=== PATIENT | male | born 1960 | race Caucasian/White ===

== ENCOUNTER → 2023-09-12 19:06 | Outpatient (REF) | payer BC, SELFPAY | LOC: MRI 3T 19:06 | PROVIDERS: ATTENDING PHYSICIAN Otolaryngology | DX: H90.41 Sensorineural hearing loss, unilateral, right ear, with unrestricted hearing on the contralateral side (principal); H93.11 Tinnitus, right ear | CPT/HCPCS: 70553; A9575 ==

== ENCOUNTER → 2023-10-02 06:25 | Day surgery (SDC) | payer BC, SELFPAY ==
[2023-10-02 08:18] LABS: Glucose - Point of Care 134 mg/dl (70-99)
== END ==
LOC: GI 06:25
PROVIDERS: ATTENDING PHYSICIAN Internal Medicine Gastroenterology
DX: Z12.11 Encounter for screening for malignant neoplasm of colon (principal); K64.8 Other hemorrhoids; D12.0 Benign neoplasm of cecum; D12.2 Benign neoplasm of ascending colon; D12.3 Benign neoplasm of transverse colon; D12.8 Benign neoplasm of rectum
CPT/HCPCS: 45385; 88305; 82962

== ENCOUNTER 2024-03-10 18:31 | Emergency (ER) | payer BC, SELFPAY ==
[2024-03-10 18:32] VITALS: BP 165/82
--- NOTE | 2024-03-10 18:42 | ED.GENMED ---
History of Present Illness
General
Chief Complaint: Musculo-Skeletal Complaint
Time Seen by Provider: 03/10/24 18:41
History of Present Illness
History of Present Illness:
TIME OF INITIAL ENCOUNTER: 6:40 PM
HPI: The patient presents due to cramping of the right hand that lasted for 20 minutes. It was described as rather severe but symptoms have since resolved. He has some degree of residual soreness. He has had similar but less severe episodes in
the past. He has blood work coming up in the near future.
EXAM:
GENERAL: Well appearing in no distress
HEENT: Moist oral mucosa
NEUROLOGIC: Excellent strength all extremities, no obvious coordination deficits
PSYCHIATRIC: Appropriate mental status, normal insight and judgement
EXTREMITIES: The patient is function in the right hand is excellent, there are no sensory deficits, he has excellent radial, there is no tenderness, there is no edema
SKIN: No rash, no lesions
NUMBER AND COMPLEXITY OF PROBLEMS ADDRESSED AT THE ENCOUNTER
� Chronic conditions affecting care: Anxiety, GERD, prediabetes
� Acute Exacerbation and/or Progression of Chronic Illness: This is an acute problem
� Differential Diagnosis includes: Muscle cramp, dehydration, electrolyte abnormality less likely
AMOUNT AND/OR COMPLEXITY OF DATA TO BE REVIEWED AND ANALYZED
� I performed an independent evaluation of and my interpretation is:
EKG:
CT:
X-rays:
Laboratory Studies:
Other:
� Review of other/old records: I reviewed old records, the patient had colonoscopy in September this year
� Clinical information was obtained by an independent historian: I spoke to his friend at bedside
� Prescriptions/Medications Considered but not given: The patient's symptoms are currently markedly improved therefore no analgesia given
� Further testing considered but not performed: Considered lab work however the patient tells me that he has upcoming lab work in the very near future
RISK OF COMPLICATIONS AND/OR MORBIDITY OR MORTALITY OF PATIENT MANAGEMENT
� Social determinants of health affecting care: Lives at home
� Discussion with other providers:
� Escalation of care including admission/observation vs risk of discharge considered: The patient symptoms have resolved. He has upcoming blood work as an outpatient. He states he has been under a lot of stress. I did suggest
that he could try drinking Gatorade Zero. He appears well-hydrated currently.
ANY OTHER UPDATES:
Past History
Past History
ED Past Medical History: None
ED Past Surgical History: None
Social History
Tobacco: Non-smoker
Alcohol: None
Drug: None
Personal: Single
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
Phy Exam
Physical Exam
Physical Exam:
See HPI
Course
Vital Signs
Initial and Last Documented VS:
Initial Vital Signs
Temp Pulse Resp BP Pulse Ox
97.9 F 66 16 165/82 97
03/10/24 18:32 03/10/24 18:32 03/10/24 18:32 03/10/24 18:32 03/10/24 18:32
Last Documented Vital Signs
Temp Pulse Resp BP Pulse Ox
97.9 F 66 16 165/82 97
03/10/24 18:32 03/10/24 18:32 03/10/24 18:32 03/10/24 18:32 03/10/24 18:32
*Critical Care Note
Total Time (30-74mins, 75-104mins- exclusive of procedures): Not Applicable
ED Attending Note
-
Portions of this chart may have been created with voice recognition software.� Occasional wrong word or��sound alike� substitutions may have occurred due to the inherent limitations of voice recognition software.
Discharge Plan
Departure
Patient Disposition: Home (Routine Discharge)
Date of Disposition: 03/10/24
Time of Disposition: 18:49
Patient with high blood pressure during this ER visit?: Yes
Discharge Problem:
Cramp in muscle
Instructions: Muscle Spasm ED
Prescriptions:
No Action
No Current Medications
Tylenol Arthritis
2 tab PO
oxycodone-acetaminophen 5 MG/325 MG tablet
1 tab PO Q4HPRN PRN (Reason: pain) Qty: 15 0RF
tamsulosin 0.4 MG capsule
0.4 mg PO DAILY Qty: 3 0RF
indomethacin 50 MG capsule
50 mg PO TID Qty: 15 0RF
Rx Instructions:
take with food
oxycodone-acetaminophen 5 MG/325 MG tablet
1 tab PO Q4HPRN PRN (Reason: Severe pain) Qty: 15 0RF
Activity Restrictions/Additional Instructions:
Follow-up with your primary care doctor. Return here if worse or other concerns.
Interventions
Interventions:
*Risk Screen - Suicide Last Done: 03/10/24 18:35
*Neglect/Abuse Screening Last Done: 03/10/24 18:35
Discharge Date and Time
Print Language: SLOVAK
== END 2024-03-10 19:10 | disposition home or self-care (01) ==
LOC: EMR 18:31
PROVIDERS: EMERGENCY PHYSICIAN Emergency Medicine; FAMILY PHYSICIAN Family Medicine
DX: R25.2 Cramp and spasm (principal)
CPT/HCPCS: 99283

== ENCOUNTER 2024-10-16 09:19 | Emergency (ER) | payer MEDICARE, SELFPAY ==
[2024-10-16 09:21] VITALS: BP 147/74
--- NOTE | 2024-10-16 09:26 | ED.GENMED ---
History of Present Illness
General
Chief Complaint: Flank Pain
Time Seen by Provider: 10/16/24 09:26
History of Present Illness
History of Present Illness:
TIME OF INITIAL EVALUATION
-
REVIEW OF OLD RECORDS
- I reviewed records, I saw this patient with cramping of the right hand in February 2020. The patient also was found to have a right-sided ureteral stone in 2009.
Note:
CHIEF COMPLAINT(S)
Abdominal pain and nausea.
HISTORY OF PRESENT ILLNESS
The patient is a 64-year-old male who presents with severe abdominal pain that began this morning. The patient initially thought the pain was due to twisting while sleeping, but the pain worsened over time. He describes the pain as being on the
right side and indicates tenderness in that area. The patient has a past history of kidney stones, noted in 2009 on the right side. He reports associated symptoms of nausea and sweating, which he attributes to the intensity of the pain. He also
mentions difficulty passing stool and slight urinary hesitancy.
PHYSICAL EXAM
- Abdominal: Tenderness noted in the right lower quadrant.
- Back: Right costovertebral angle tenderness on palpation.
- General: Well appearing but appears uncomfortable, elevated BMI noted
- HEENT: Moist oral mucosa
- Cardiovascular: No murmurs, normal heart rate, regular rhythm, No chest wall tenderness
- Pulmonary: No respiratory distress, breath sounds are clear and equal
- Neurologic: Excellent strength all extremities, no coordination deficits
- Psychiatric: Appropriate mental status, normal insight and judgement
- Extremities: Nontender, no edema, moves all extremities equally
- Skin: No rash, no lesions
PLAN
Initiate intravenous access for the administration of pain management and antiemetics. Administer ketorolac for pain control and medication for nausea. Proceed with diagnostic imaging to confirm the presence of a kidney stone and assess its size and
location.
DIFFERENTIAL DIAGNOSIS
The Differential Diagnosis includes, in no particular order and is not limited to:
1. Nephrolithiasis (kidney stone)
2. Pyelonephritis
3. Hernia
4. Musculoskeletal pain
5. Appendicitis
6. Gallbladder disease
7. Peptic ulcer disease
8. Gastroenteritis
9. Urinary tract infection
10. Prostatitis
RADIOLOGY
- CT imaging obtained and shows a 4 mm distal right ureteral stone
EKG
- Not indicated
LABS
- Urinalysis shows no definite sign of infection but does show hematuria, hyperglycemia noted and the patient does not have a history of diabetes
UPDATE
Patient appears more comfortable on reassessment at 12:01 PM
-ASSESSMENT
The patient has been diagnosed with a kidney stone, which is small to medium in size, contributing to severe abdominal pain. The patients glucose level is significantly high at 286 mg/dL, indicating potential undiagnosed diabetes.
EMERGENCY TREATMENTS ADMINISTERED
The patient received multiple rounds of pain medication, including ketorolac.
PLAN
The patient does not require hospital admission at this time due to the size and location of the kidney stone. After evaluation, the decision is to manage the condition on an outpatient basis.
INDEPENDENT REVIEW OF LABS AND INTERPRETATION OF TESTS
My independent interpretation of the CT scan is the presence of a small to medium-sized kidney stone. The stones positioning does not currently necessitate procedural intervention.
MEDICATION RECONCILIATION
Prescriptions for the patient include:
- Oxycodone/acetaminophen (Percocet) for pain management
- Medication for nausea
- Tamsulosin (Flomax) to assist in passing the kidney stone
- Metformin for glucose control
A prescription for a glucometer will also be provided for home monitoring of blood glucose levels.
MEDICAL DECISION MAKING
1. Number & Complexity of Problems: Chronic conditions affecting care include the potential for diabetes and history of kidney stones.
2. Data Reviewed:
- Category 1: CT imaging was ordered and reviewed confirming the kidney stone.
DIAGNOSIS
Nephrolithiasis (kidney stone), potential diabetes.
PATHOLOGIES TO CONSIDER
- Acute renal colic due to nephrolithiasis.
- Potential undiagnosed diabetes given the elevated glucose levels.
FOLLOW-UP INSTRUCTIONS
Follow up with a primary care physician for glucose management. Consider referral to a envelope folding machine adjuster for evaluation of possible sleep apnea.
Overall more comfortable on reassessment after meds given to treat pain from kidney stone
Past History
Past History
ED Past Medical History: None
ED Past Surgical History: None
Social History
Tobacco: Non-smoker
Alcohol: None
Drug: None
Personal: Single
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
Phy Exam
Physical Exam
Physical Exam:
See HPI
Course
Orders/Labs/Results
Orders:
Orders
10/16/24 09:31
0.9% Sodium Chloride 1000 ml [Nss] 1,000 ml IV BOLUS
Ketorolac [Toradol] 15 mg IV NOW STA
Ondansetron Injectable [Zofran] 4 mg IV NOW STA
10/16/24 09:57
Complete Blood Count/With Diff Urgent
Comprehensive Metabolic Panel Urgent
Urinalysis Reflex To Culture Urgent
Date Specimen was Collected: 10/16/24
Time Specimen was Collected: 09:47
Urine Microscopic Reflex Cult Urgent
Urine Culture Urgent
SEVERO Source: U
Specimen Description:
Date Specimen was Collected: 10/16/24
Time Specimen was Collected: 09:47
10/16/24 10:03
HYDROmorphone [Dilaudid] 1 mg IV NOW STA
10/16/24 10:13
Ondansetron Injectable [Zofran] 4 mg .ROUTE .STK-MED ONE
10/16/24 11:00
CT Abd/pel Without Iv Or Oral Urgent
Comment:
Reason For Exam: R flank pain
10/16/24 11:15
HYDROmorphone [Dilaudid] 1 mg .ROUTE .STK-MED ONE
10/16/24 11:22
HYDROmorphone [Dilaudid] 1 mg IV NOW STA
Abnormal Lab Results
10/16/24
09:57
MCHC 32.6 L g/dL
(33.0-37.0)
Abs Immat Gran (auto) 0.1 H 10^3/uL
(0-0.05)
Absolute Neuts (auto) 7.5 H 10^3/uL
(1.4-6.5)
Absolute Monos (auto) 0.8 H 10^3/uL
(0.1-0.6)
Lymphocytes % 18.2 L %
(20.5-51.1)
Chloride 108 H mmol/L
(98-107)
BUN 21 H mg/dl
(9-20)
Glucose 286 H mg/dl
(70-99)
Ur Occult Blood Reflex 4+ A
(Negative)
Leukocyte Esterase Rfl 1+ A
(Negative)
Urine RBC 40-50 A /HPF
(0-2)
Urine Bacteria (Reflex) Few A
(Negative)
Urine Glucose 2+ A
(Negative)
Urine Albumin (Reflex) 2+ A
(Neg - Trace)
10/16/24 09:57
10/16/24 09:57
Vital Signs
Initial and Last Documented VS:
Initial Vital Signs
Temp Pulse Resp BP Pulse Ox
36.6 C 60 16 147/74 95
10/16/24 09:21 10/16/24 09:21 10/16/24 09:21 10/16/24 09:21 10/16/24 09:21
Last Documented Vital Signs
Temp Pulse Resp BP Pulse Ox
36.6 C 75 18 154/90 95
10/16/24 09:21 10/16/24 12:00 10/16/24 12:00 10/16/24 10:15 10/16/24 12:00
*Pulse Oximetry
SaO2: 95
Oxygen Mode of Delivery: Room air
Patient hypoxic: no
*Critical Care Note
Total Time (30-74mins, 75-104mins- exclusive of procedures): Not Applicable
ED Attending Note
-
Portions of this chart may have been created with voice recognition software.� Occasional wrong word or��sound alike� substitutions may have occurred due to the inherent limitations of voice recognition software.
Discharge Plan
Departure
Patient Disposition: Home (Routine Discharge)
Date of Disposition: 10/16/24
Time of Disposition: 12:02
Patient with high blood pressure during this ER visit?: Yes
Discharge Problem:
Right ureteral stone
Instructions: Kidney Stones (DC), How to Strain Your Urine, Diabetes and diet, BLOOD PRESSURE
Prescriptions:
New
metformin 500 mg tablet
500 mg PO BID Qty: 60 0RF
oxycodone-acetaminophen [Percocet] 5-325 mg tablet
1 - 2 tab PO Q6HPRN PRN (Reason: pain) Qty: 14 0RF
ondansetron HCl 4 mg tablet
4 mg PO TID PRN (Reason: nausea and vomiting) Qty: 14 0RF
tamsulosin [Flomax] 0.4 mg capsule
0.4 mg PO DAILY Qty: 14 0RF
Referrals:
Von Hinojosa PA [Family Provider, Family Practice]
Montserrat Causey MD [Active, Pulmonary Medicine]
Richard Dawson MD [Active, Urology]
Activity Restrictions/Additional Instructions:
Your blood sugar is 286. This is consistent with diabetes. There does not appear to be any complications such as diabetic ketoacidosis based on the blood work. Your urinalysis shows blood which is commonly seen with kidney stone but there is no
sign of infection. I have also given the contact information for a envelope folding machine adjuster for sleep study, Dr. Causey. I recommend that you check your blood sugar before every meal and before bedtime. I sent a prescription for metformin to your pharmacy.
Follow-up your primary care doctor. Return here if worse or other concerns.
Interventions
Interventions:
*Risk Screen - Suicide Last Done: 10/16/24 09:21
*General Assessment Last Done: 10/16/24 10:18
*Neglect/Abuse Screening Last Done: 10/16/24 09:21
*ED- Fall Risk Assessment Last Done: 10/16/24 10:18
*ED COVID-19 Vaccine History Last Done: 10/16/24 10:18
*Nursing Disposition Last Done: 10/16/24 12:56
EJ-Zicvcj-Jwnigmmuze Assessment Last Done: 10/16/24 10:27
ED-Male Genitourinary Assessment Last Done: 10/16/24 10:27
Discharge Date and Time
Discharge Date/Time: 10/16/24 12:56
Print Language: GREENLANDIC
[2024-10-16] MEDS: NSS 1000 IV (10:01)
[2024-10-16] MEDS: TORADOL 15 MG IV (10:03)
[2024-10-16] MEDS: DILAUDID 1 MG IV ×2 (10:08→11:31)
[2024-10-16 10:13] LABS: % Basophils 0.8 % (0-2); % Eosinophils 0.7 % (0-6); % Immature Granulocytes 0.5 % (0-0.5); % Lymphocytes 18.2 % (20.5-51.1); % Monocytes 7.5 % (1.7-9.3); % Neutrophils 72.3 % (42.2-75.2); Absolute Basophils 0.1 10^3/uL (0-0.2); Absolute Eosinophils 0.1 10^3/uL (0-0.7); Absolute Immature Granulocytes 0.1 10^3/uL (0-0.05); Absolute Lymphocytes 1.9 10^3/uL (1.2-3.4); Absolute Monocytes 0.8 10^3/uL (0.1-0.6); Absolute Neutrophils 7.5 10^3/uL (1.4-6.5); Hematocrit 44.5 % (39.0-52.0); Hemoglobin 14.5 g/dL (13.0-18.0); Mean Corp Hgb Conc. 32.6 g/dL (33.0-37.0); Mean Corpuscular Hgb 30.3 pg (27.0-31.0); Mean Corpuscular Volume 93.1 fL (80.0-94.0); Mean Platelet Volume 9.4 fL (7.4-10.4); Nucleated Red Blood Cells % 0 % (-); Platelet Count 220 10^3/uL (130-400); Red Blood Cell Count 4.78 10^6/uL (4.70-6.10); White Blood Cell Count 10.4 10^3/uL (4.8-10.8)
[2024-10-16] MEDS: ZOFRAN 4 MG IV (10:14)
[2024-10-16 10:15] VITALS: BP 154/90; BMI 42.5
--- NOTE | 2024-10-16 10:17 | EDRN ---
Pt has never been checked for sleep apnea.. his sats decrease to 82 on RA when sleeping
[2024-10-16 10:29] LABS: Urine Albumin 2+ (Neg - Trace); Urine Bilirubin Negative (Negative); Urine Character Cloudy (Clear); Urine Color Amber; Urine Glucose 2+ (Negative); Urine Ketone Negative (Negative); Urine Leukocyte 1+ (Negative); Urine Nitrite Negative (Negative); Urine Occult Blood 4+ (Negative); Urine Specific Gravity 1.025 (<1.030); Urine Urobilinogen Negative (Neg - 1+)
[2024-10-16 10:31] LABS: ALT (SGPT) 28 U/L (0-50); AST (SGOT) 23 U/L (17-59); Albumin 4.1 g/dl (3.5-5.0); Alkaline Phosphatase 72 U/L (38-126); Blood Urea Nitrogen 21 mg/dl (9-20); Calcium 9.4 mg/dl (8.4-10.2); Carbon Dioxide 24 mmol/L (22-30); Chloride 108 mmol/L (98-107); Estimated Creatinine Clearance 117 ml/min; Glucose 286 mg/dl (70-99); Potassium 4.7 mmol/L (3.5-5.1); Sodium 141 mmol/L (135-145); Total Bilirubin 0.7 mg/dl (0.2-1.3); Total Protein 6.9 g/dl (6.3-8.2); eGFR > 60.00
--- NOTE | 2024-10-16 10:37 | EDRN ---
With Dr Pope's okay- I asked the pt to get some health issues rechecked -- I am worried about sleep apnea as his sats decrease to 82 when sleepiing. His blood sugar was 286 as well and he has no known issues with diabetes.
[2024-10-16 10:49] LABS: Urine Bacteria Few (Negative); Urine Red Blood Cell 40-50 /HPF (0-2)
== END 2024-10-16 12:56 | disposition home or self-care (01) ==
LOC: EMR 09:19
PROVIDERS: EMERGENCY PHYSICIAN Emergency Medicine; FAMILY PHYSICIAN Physician Assistant
DX: N13.2 Hydronephrosis with renal and ureteral calculous obstruction (principal); K59.00 Constipation, unspecified; Z87.442 Personal history of urinary calculi
CPT/HCPCS: 99284; 96374; 96375; 96376; 96361; 74176; 80053; 81003; 81015; 85025; 87086

== ENCOUNTER 2024-12-17 21:19 | Inpatient (IN) | payer MEDICARE, SELFPAY ==
[2024-12-17] VITALS (12 sets, daily range): BP systolic 128–174; BP diastolic 77–92; BMI 41.2
[2024-12-17 14:43] LABS: Urine Character Clear (Clear)
[2024-12-17 15:02] LABS: Urine Squamous Cell 0-2 /LPF (Few)
[2024-12-17 15:05] LABS: Urine Red Blood Cell >100 /HPF (0-2); Urine White Cell 0-2 /HPF (0-5)
--- NOTE | 2024-12-17 15:12 | PTCARENOTE ---
1445: Pt in the waiting room, c/o feeling SOB, chest pain and like he was going to pass out. Pt was placed on a stretcher in protocol to await a bed in main ED, EKG was obtained.
--- NOTE | 2024-12-17 15:17 | ED.GENMED ---
History of Present Illness
General
Chief Complaint: Flank Pain
Source: patient
Exam Limitations: none
Time Seen by Provider: 12/17/24 14:57
Nursing documentation reviewed up to this point in time: agreed with
History of Present Illness
History of Present Illness:
Patient is a 64-year-old male past medical history of kidney stones (4 mm calculus in the distal right ureter September 2024) presents to the ER for evaluation of left abdominal/flank pain. Patient is a very poor historian
He reports this does feel similar but worse to his previous kidney stone pain. He also complains of dizziness and shortness of breath. He reports that shortness of breath has been going on 'a while.' For over a month he has noticed shortness of
breath worse with laying down at nighttime he denies any shortness of breath with exertion denies any extremity swelling.
He has no cardiac history no recent fever chills. He does report he thinks he may have sleep apnea. He has no known cardiac disease.
Past History
Past History
ED Past Medical History: None
ED Past Surgical History: None
Social History
Tobacco: Non-smoker
Alcohol: None
Drug: None
Personal: Single
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
Phy Exam
General Physical Exam
General Presentation: no apparent distress
General age: appears stated age
General Skin: warm and dry
General Habitus: obese
General Mental: alert
General Hydration: appears well hydrated
Cardiovascular Exam
Cardiovascular Exam: regular rate/rhythm, no murmur and normal peripheral pulses
Pulmonary Exam
Pulmonary Exam: lungs clear, no respiratory distress and no crackles
Neurological Exam
Neurological Exam: alert and oriented x3
Musculoskeletal Exam
Musculoskeletal Exam: full ROM
Skin Exam
Skin Exam: normal color and warm/dry
Psychiatric Exam
Psychiatric Exam: normal mood/affect
Course
Orders/Labs/Results
Orders:
Orders
12/17/24 14:23
Basic Metabolic Panel Urgent
Lipase Urgent
Urinalysis Reflex To Culture Urgent
Date Specimen was Collected: 12/17/24
Time Specimen was Collected: 14:10
Urine Microscopic Reflex Cult Urgent
Urine Culture Urgent
SEVERO Source: U
Specimen Description:
Date Specimen was Collected: 12/17/24
Time Specimen was Collected: 14:10
12/17/24 14:45
Electrocardiogram (*1) Urgent
Reason for Study: Chest Pain
EKG- Treatment ONCE
12/17/24 16:10
Complete Blood Count/With Diff Routine
12/17/24 16:13
Add On- LAB Urgent
Tests Added?: cardiac BNP, troponin , potassium
12/17/24 16:40
NT-proBNP Urgent
Comment: ADD ON
Troponin I Urgent
Comment: ADD ON
12/17/24 17:06
D-Dimer Urgent
Potassium Urgent
12/17/24 17:36
CT Pe/abd/pel W Urgent
Comment:
Reason For Exam: left side abd pain
12/17/24 17:37
0.9% Sodium Chloride 1000 ml [Nss] 1,000 ml IV BOLUS
12/17/24 17:51
Ketorolac [Toradol] 15 mg IV NOW STA
Abnormal Lab Results
12/17/24 12/17/24 12/17/24
14:23 16:10 17:06
WBC 11.9 H 10^3/uL
(4.8-10.8)
MCHC 32.8 L g/dL
(33.0-37.0)
Absolute Neuts (auto) 9.9 H 10^3/uL
(1.4-6.5)
Absolute Lymphs (auto) 1.1 L 10^3/uL
(1.2-3.4)
Absolute Monos (auto) 0.7 H 10^3/uL
(0.1-0.6)
Neutrophils % 83.6 H %
(42.2-75.2)
Lymphocytes % 9.5 L %
(20.5-51.1)
D-Dimer 1.43 H ug/mlFEU
(0.00-0.50)
Chloride 108 H mmol/L
(98-107)
Glucose 213 H mg/dl
(70-99)
Ur Occult Blood Reflex 4+ A
(Negative)
Leukocyte Esterase Rfl 1+ A
(Negative)
Urine RBC >100 A /HPF
(0-2)
Urine Albumin (Reflex) 2+ A
(Neg - Trace)
12/17/24 16:10
12/17/24 17:06
Vital Signs
Initial and Last Documented VS:
Initial Vital Signs
Temp Pulse Resp BP Pulse Ox
97.8 F 60 22 146/89 94
12/17/24 14:06 12/17/24 14:06 12/17/24 14:06 12/17/24 14:06 12/17/24 14:06
Last Documented Vital Signs
Temp Pulse Resp BP Pulse Ox
97.8 F 77 22 155/79 84
12/17/24 14:06 12/17/24 19:00 12/17/24 18:12 12/17/24 19:00 12/17/24 19:00
Kettle Hand consulted with Physician
Kettle Hand consulted with physician?: Yes
Name of Physician Consulted: Phuc
MDM/Problems Addressed
Differential Diagnosis Includes:
Not limited to renal colic, CHF, ACS, less likely PE
MDM/Problems Addressed:
As documented patient is a 64-year-old male presented with left flank pain since last night. Patient has a history of renal colic. In addition patient complains of shortness of breath worse at night which is not necessarily new. He has no
associated chest pain. He is with friend who reports he is not truly compliant with his care and is very poor historian. Because of vague shortness of breath in addition to stone workup blood work was done including D-dimer and troponin cardiac
BNP. D-dimer is elevated CAT scan was done which does show bilateral saddle PE with no right heart strain. No stone on the left. Patient is nontachypneic nontachycardic stable. Case reviewed with ED physician. IV heparin ordered .
*Radiology
Radiology exam reviewed: radiology read reviewed
*Pulse Oximetry
SaO2: 94
Oxygen Mode of Delivery: Room air
Patient hypoxic: no
*Critical Care Note
Total Time (30-74mins, 75-104mins- exclusive of procedures): Not Applicable
ED Attending Note
-
Portions of this chart may have been created with voice recognition software.� Occasional wrong word or��sound alike� substitutions may have occurred due to the inherent limitations of voice recognition software.
Discharge Plan
Departure
Patient Disposition: Admit
Date of Disposition: 12/17/24
Time of Disposition: 19:34
Admit to: Telemetry
Admit to doctor: hospitalist
Presentation/result/management discussed w/ accepting MD/DO: Hospitalist
Patient with high blood pressure during this ER visit?: Yes
Condition: Fair
Covid-19: Not Applicable
Discharge Problem:
Acute saddle pulmonary embolism, left flank pain
Prescriptions:
No Action
metformin 500 mg tablet
500 mg PO BID Qty: 60 0RF
oxycodone-acetaminophen [Percocet] 5-325 mg tablet
1 - 2 tab PO Q6HPRN PRN (Reason: pain) Qty: 14 0RF
ondansetron HCl 4 mg tablet
4 mg PO TID PRN (Reason: nausea and vomiting) Qty: 14 0RF
tamsulosin [Flomax] 0.4 mg capsule
0.4 mg PO DAILY Qty: 14 0RF
Referrals:
Jonnathan Martins MD [Family Provider, Family Practice]
Interventions
Interventions:
*Risk Screen - Suicide Last Done: 12/17/24 14:06
*General Assessment Last Done: 12/17/24 14:06
*Neglect/Abuse Screening Last Done: 12/17/24 14:06
GJ-Sdntwn-Eczdyprhmm Assessment Last Done: 12/17/24 16:00
ED-Male Genitourinary Assessment Last Done: 12/17/24 16:00
Discharge Date and Time
Print Language: YEMENI
[2024-12-17 15:40] LABS: Blood Urea Nitrogen 16 mg/dl (9-20); Calcium 9.0 mg/dl (8.4-10.2); Carbon Dioxide 22 mmol/L (22-30); Chloride 108 mmol/L (98-107); Glucose 213 mg/dl (70-99); Lipase 63 U/L (23-300); Sodium 139 mmol/L (135-145); eGFR > 60.00
[2024-12-17 16:21] LABS: Hematocrit 46.1 % (39.0-52.0); Hemoglobin 15.1 g/dL (13.0-18.0); Mean Corp Hgb Conc. 32.8 g/dL (33.0-37.0); Mean Corpuscular Volume 92.0 fL (80.0-94.0); Nucleated Red Blood Cells % 0 % (-); Platelet Count 209 10^3/uL (130-400); Red Cell Dist. Width 12.8 % (11.5-14.5)
[2024-12-17 17:19] LABS: Troponin I < 0.012 ng/ml
[2024-12-17 17:27] LABS: D-Dimer 1.43 ug/mlFEU (0.00-0.50); Potassium 5.0 mmol/L (3.5-5.1)
[2024-12-17] MEDS: TORADOL 15 MG IV (18:12)
[2024-12-17] MEDS: NSS 1000 IV (18:12)
[2024-12-17] MEDS: HEPARIN 10000 UNITS IV (20:08)
[2024-12-17] MEDS: HEPARIN 25000 UNITS/250 ML IV (20:08)
[2024-12-17 20:17] LABS: APTT 24.0 Sec (23.4-35.0)
--- NOTE | 2024-12-17 20:46 | HPS.HSE ---
Family Physician
-
Family Physician: Jonnathan Martins
Chief Complaint
-
Abdominal pain
History of Present Illness
Patient is a 64y M with PMH significant for hypertension and DM-II who presents to ED complaining of L abdominal pain. Patient states that he woke with sharp, severe pain in the L lateral abdomen around 2 AM today. Pain eventually resolved and
recurred around 7AM. Again, pain resolved and recurred again around 11AM. At this point he had severe pain, diaphoresis and felt as if he could not catch his breath. He states that pain seemed similar to prior kidney stones - though much more
severe. He presented to the ED for further evaluation and treatment.
No recent travel. No recent surgery or injuries. No prior history of blood clots. No known family history of blood clots.
Medical History
Past Medical History
Past Medical History: Reports Other
Additional Past Medical History:
Hypertension
DM-II
Obesity
Gout
Kidney Stones
Past Surgical History: Reports None and Other
Social History
Tobacco: Non-smoker
Alcohol: None
Drug: None
Family History
Family History: Not pertinent
Allergies / Home Medications
Allergies reflects when Allergies were last updated in [facility].
Home Medications with original date entered in [facility]
Allergy/Medication List:
Allergies
Allergy/AdvReac Type Severity Reaction Status Date / Time
No Known Allergies Allergy Verified 12/17/24 14:09
Home Medications
allopurinol 100 mg tablet 100 mg PO DAILY 12/17/24
atorvastatin 10 mg tablet 10 mg PO DAILY 12/17/24
losartan 100 mg tablet 100 mg PO DAILY 12/17/24
metoprolol succinate 100 mg tablet,extended release 24 hr (Toprol XL) 50 mg PO DAILY 12/17/24
Review of Systems
-
History Source: Patient
A 12 point ROS was completed and negative except as noted: Yes
Constitutional: Denies Fever or Chills
Respiratory: Reports Trouble Breathing; Denies Cough
Cardiac: Reports Diaphoresis; Denies Chest Pain or Palpitations
Abdomen/GI: Reports Abdominal Pain and Nausea; Denies Vomiting, Diarrhea, Bloody Stools or Black Stools
: Reports Flank Pain; Denies Dysuria or Frequency
Musculoskeletal: Denies Joint Pain, Muscle Pain or Edema
Neurological: Reports Dizzy; Denies Headache
Psych: Denies Depression or Anxiety
Physical Exam
Vital Signs
Vital Signs
Temp Pulse Resp BP Pulse Ox
97.8 F 78 22 128/77 94
12/17/24 14:06 12/17/24 20:15 12/17/24 18:12 12/17/24 20:00 12/17/24 20:15
Physical Exam
General: Other (64y M in no acute distress.)
HEENT: Moist mucous membranes and PERRLA
Respiratory: Clear; No Wheezes, Rales or Rhonchi
Cardiac: S1/S2 and Regular Rhythm; No Murmur
GI: Soft, Non Distended, Normal Bowel Sounds and Other (Obese. L lateral / LLQ tenderness. Pos BS.)
Musculoskeletal: No Clubbing, No Cyanosis, No Edema and Other (No calf tenderness / cords.)
Neuro: AO x 3
Laboratory Results
-
12/17/24 16:10
12/17/24 17:06
Laboratory Results
APTT 24.0 Sec (23.4-35.0) 12/17/24 17:06
Total Bilirubin Cancelled 12/17/24 14:23
AST Cancelled 12/17/24 14:23
ALT Cancelled 12/17/24 14:23
Alkaline Phosphatase Cancelled 12/17/24 14:23
Troponin I < 0.012 ng/ml 12/17/24 16:40
Lipase 63 U/L (23-300) 12/17/24 14:23
Impression/Plan
-
A/P: Patient is a 64y M with PMH significant for hypertension and DM-II who presents to ED complaining of L sided abdominal pain. Evaluation in the ED reveals large / extensive PE.
Pulmonary Embolism
Acute Hypoxemic Respiratory Failure secondary to the above
- Admit for further evaluation and treatment.
- CT A/P done in the ED shows large saddle embolus with smaller, scattered, bilateral emboli throughout the lungs.
- IV heparin for at least 24 hours.
- Check echo in AM. US lower extremities.
- No clear trigger and patient will require further evaluation / age-appropriate cancer screenings, etc.
- Continue supplemental O2 and wean as able.
- Follow for any clinical changes.
Benign Hypertension
- Stable. Continue metoprolol with holding parameters.
- Hold losartan acutely.
DM-II
- Stable. Hold metformin given IV contrast study done today.
- Follow glucose and cover with SSI if needed.
- Update A1C.
Morbid Obesity due to excess calories
- Affects all aspects of care.
- Encourage healthy diet and increased activity with goal of weight loss.
DVT Prophylaxis: On IV heparin
Code Status: Full
--- NOTE | 2024-12-17 23:30 | PTCARENOTE ---
rec'd patient from ER, stable vitals. No complaints at this time. Heparin drip infusing at 20mls/hr. SR in 80s on tele. POC reviewed with patient.
[2024-12-18 02:29] LABS: APTT 108.0 Sec (23.4-35.0)
[2024-12-18 03:00] VITALS: BP 124/76
[2024-12-18 06:00] VITALS: BMI 41.8
[2024-12-18 07:00] VITALS: BP 135/84
[2024-12-18 07:15] LABS: Glucose - Point of Care 157 mg/dl (70-99)
[2024-12-18 08:17] LABS: Hematocrit 41.5 % (39.0-52.0); Hemoglobin 13.4 g/dL (13.0-18.0); Mean Corp Hgb Conc. 32.3 g/dL (33.0-37.0); Mean Corpuscular Volume 93.5 fL (80.0-94.0); Platelet Count 196 10^3/uL (130-400); Red Cell Dist. Width 13.1 % (11.5-14.5)
--- NOTE | 2024-12-18 08:18 | W.PN.HOSP.TC ---
Today's Communication/Plan
-
IV heparin
echo
dopplers
pulm c/s
Assessment / Plan
Assessment / Plan
64M with hypertension and DM-II p/w L abdominal pain, SOB, dizziness, found to have large / extensive PE.
Pulmonary Embolism
Acute Hypoxemic Respiratory Failure secondary to the above
- CT A/P done in the ED shows large saddle embolus with smaller, scattered, bilateral emboli throughout the lungs.
- IV heparin for at least 24 hours.
- echo pending
- US lower extremities pending
- No clear trigger and patient will require further evaluation / age-appropriate cancer screenings, etc.
- Continue supplemental O2 and wean as able.
- Follow for any clinical changes.
- pulm consult
Benign Hypertension
- Stable. Continue metoprolol with holding parameters.
- Hold losartan acutely.
DM-II
- Stable. Hold metformin inpatient
- Follow glucose and cover with SSI if needed.
- A1C pending.
Morbid Obesity due to excess calories
- Affects all aspects of care.
- Encourage healthy diet and increased activity with goal of weight loss.
Suspected CAMILA
pulm eval/tx
O2 prn
DVT Prophylaxis: On IV heparin
Code Status: Full
Anticipated Discharge: 24 - 48 hours
Subjective/Interval History
-
Date of Service: December 18, 2024
Feeling well not having pain. Is wearing O2
Objective Data
-
Labs:
Laboratory Results
12/17/24 12/18/24 12/18/24
17:06 02:02 08:03
WBC 10.4
Hgb 13.4
Hct 41.5
Plt Count 196
APTT 24.0 108.0 H Pending
Sodium Pending
Potassium Pending
Chloride Pending
Carbon Dioxide Pending
BUN Pending
Creatinine Pending
Glucose Pending
Calcium Pending
Total Bilirubin Pending
AST Pending
ALT Pending
Alkaline Phosphatase Pending
Vital Signs:
Vital Signs
Temp Pulse Resp BP Pulse Ox
98.7 F 76 20 124/76 97
12/18/24 03:00 12/18/24 03:00 12/18/24 03:00 12/18/24 03:00 12/18/24 03:00
I&O
12/17/24 12/18/24 12/19/24
06:59 06:59 06:59
Intake Total 960 / 960
Output Total 500 / 500
Balance 460 / 460
Review of Systems
-
All other systems: Reviewed and negative
Physical Exam
-
General: No Apparent Distress and Obese
HEENT: Moist Mucous Membranes, Anicteric and PERRLA
Respiratory: Clear to Auscultation; Negative Wheezes, Rales or Rhonchi
Cardiac: Regular Rhythm and S1/S2; Negative Murmur, Rub or Gallop
GI: Soft, Nontender, Nondistended and Normal Bowel Sounds
Musculoskeletal: No Edema
Skin: Warm and Dry; Negative Rash, Ulcers or Lesions
Neuro: Awake and AO x 3
Hematologic / Lymphatic: No Lymphadenopathy
Psych: Calm
Data Reviewed
-
CT Scan: Report Reviewed by me
Labs: Labs Reviewed by me
[2024-12-18 08:25] LABS: APTT 87.9 Sec (23.4-35.0)
[2024-12-18 08:46] LABS: Glycohemoglobin (HgbA1c) 8.2 % (4.0-5.6)
[2024-12-18] MEDS: PROTONIX IV 40 MG IV (09:04)
[2024-12-18] MEDS: NOVOLOG FLEXPEN-LOW RESISTANCE 1 UNITS SC ×2 (09:04→12:56)
[2024-12-18] MEDS: NSS (PRESERVATIVE FREE) 10 ML IV (09:04)
[2024-12-18] MEDS: TOPROL XL 50 MG PO (09:04)
[2024-12-18 09:48] LABS: ALT (SGPT) 29 U/L (0-50); AST (SGOT) 24 U/L (17-59); Albumin 3.8 g/dl (3.5-5.0); Alkaline Phosphatase 74 U/L (38-126); Blood Urea Nitrogen 17 mg/dl (9-20); Calcium 8.4 mg/dl (8.4-10.2); Carbon Dioxide 24 mmol/L (22-30); Chloride 108 mmol/L (98-107); Estimated Creatinine Clearance 89 ml/min; Glucose 162 mg/dl (70-99); Potassium 4.3 mmol/L (3.5-5.1); Sodium 139 mmol/L (135-145); Total Protein 6.4 g/dl (6.3-8.2); eGFR > 60.00
[2024-12-18] MEDS: HEPARIN 25000 UNITS/250 ML IV ×2 (10:28→21:18)
[2024-12-18] MEDS: TYLENOL 650 MG PO ×2 (10:31→23:59)
--- NOTE | 2024-12-18 10:33 | CON.PUL ---
Consultation
Consultation Request
Date/Time Consultation Requested: 12/18/2024-10 AM
Date/Time Consultation Performed: 12/18/2024-10:15 AM
Requesting Provider: Hospitalist
Performing Provider: Dr. Sheth
Reason for Consultation: Pulm embolism
Medical History
-
Chief Complaint: Left-sided pleurisy/shortness of breath
History of Present Illness:
64-year-old non-smoking obese male with a history of kidney stones and a right presented with sharp severe left lateral abdominal pain and found to have significant pulmonary emboli-pulmonary consulted for pulmonary embolism management 12/18/2024.
The patient states that he felt like he might be having a kidney stone on the left side. The pain was sharp and possibly pleuritic. It mild shortness of breath associated with it. He did not have any sedentary existence, and he has no
hypercoagulable family history and no previous clotting. He is feeling improved this morning. Does not complain of any shortness of breath at rest, chest pain, chest tightness, chest congestion, productive cough, wheezing, pleurisy, abdominal
pain, increased leg swelling or focal weakness.
Past Medical History
Past Medical History: None (Morbid obesity. Obstructive sleep apnea suspected. Hypertension. Diabetes. Gout. Renal calculi.)
Social History
Tobacco: Non-smoker
Alcohol: None
Drug: None
Occupational Exposures: No known asbestos exposure
Environmental Exposures: No known tuberculosis exposure
Family History
Family History: Reviewed & Not Pertinent ( no family history of clotting)
Allergies / Home Medications
Allergies
Allergy/AdvReac Type Severity Reaction Status Date / Time
No Known Allergies Allergy Verified 12/17/24 14:09
Home Medications
�Medication �Instructions �Recorded �Confirmed �Last Taken �Type
allopurinol 100 mg tablet 100 mg PO DAILY 12/17/24 12/17/24 Unknown History
atorvastatin 10 mg tablet 10 mg PO DAILY 12/17/24 12/17/24 Unknown History
losartan 100 mg tablet 100 mg PO DAILY 12/17/24 12/17/24 Unknown History
metoprolol succinate 100 mg 50 mg PO DAILY 12/17/24 12/17/24 Unknown History
tablet,extended release 24 hr
(Toprol XL)
Review of Systems
-
Unable to Obtain full review of systems at this time due to: Other (Per HPI)
Vitals / Labs / Diagnostic Testing
Vital Signs
Temp Pulse Resp BP Pulse Ox
98.6 F 77 12 135/84 96
12/18/24 07:00 12/18/24 09:04 12/18/24 07:00 12/18/24 09:04 12/18/24 07:00
Lab Data
12/18/24 08:03
12/18/24 08:03
Laboratory Results
12/17/24 12/18/24 12/18/24
17:06 02:02 08:03
APTT 24.0 108.0 H 87.9 H
Microbiology
12/17/24 14:23 Urine Urine Culture - Final
No Significant Growth
Diagnostic Testing:
Physical Exam
-
Exam:
Well-nourished and well-developed in no apparent distress
HEENT-atraumatic, normocephalic
Neck-supple, no JVD, no bruit
Heart-regular rate and rhythm-no murmurs, rubs or gallops, no increased P2 or RV heave
Chest-clear to auscultation, no wheezes, crackles
Back-no tenderness
Abdomen-soft, nontender, nondistended, no hepatosplenomegaly
Extremities-no cyanosis, clubbing, trace edema
Integument-intact, no rashes, lesions or ecchymosis
Neurology-alert and oriented, nonfocal motor and sensory exam, thick neck
Assessment
-
64-year-old non-smoking obese male with a history of kidney stones, hypertension, diabetes, gout and a right presented with sharp severe left lateral abdominal pain and found to have significant pulmonary emboli-pulmonary consulted for pulmonary
embolism management 12/18/2024.
Pulmonary embolism-submassive and unprovoked
D-dimer 1.43, troponin negative, proBNP 86
PESI-75, class II low risk
Mild leukocytosis-WBC 11.9
Thyroid nodule-1.7 cm right thyroid
Conditions present prior to admission:
Morbid obesity-BMI 42
Obstructive sleep apnea suspected.
Hypertension.
Diabetes.
Gout.
Renal calculi.
Plan
Patient will be admitted to telemetry bed
Supplemental oxygen as needed
Aspiration precautions
Incentive spirometry
CT chest personally reviewed-summarized below
Check echocardiogram
Check lower extremity ultrasound
Recommend eventual hypercoagulable workup as pulmonary embolism is in large part unprovoked
Full PESI summarized above
Heparin drip or Lovenox 1 mg/kg every 12 hours
Benefits and risks of thrombolytics therapy were reviewed with patient
Patient has no
The patient undoubtedly has obstructive sleep apnea-associations with untreated sleep apnea will be reviewed tachycardia and no hypotension-currently risks of aggressive thrombolytic therapy outweigh [id number] notified of options,
reasons for conservative standard of care therapy and is in agreement
Bedrest �24 hours
Will leave thyroid ultrasound to primary team or in the outpatient setting
DVT prophylaxis-on full anticoagulation
Early nutrition
Early mobilization
Outpatient pulmonary/sleep disorders follow-up
Outpatient appropriate malignancy screening including colonoscopy and prostate exam
The patient undoubtedly has obstructive sleep apnea by symptoms-recommend outpatient sleep study and appropriate treatment
Critical care statement: A total of 65 minutes of critical care time was provided for this patient today. This includes management of unstable vital signs, evaluation for thrombolytic therapy, management of large pulmonary embolism, evaluation of
the patient at bedside, reviewing the patient's pertinent medical records including radiographs, microbiology, laboratory evaluations, and discussion with primary team, consultants, pharmacy, and critical care nursing.
Diagnostic data:
CT chest abdomen and pelvis 12/17/2024-extensive bilateral saddle pulmonary emboli, no overt CT evidence for right ventricular strain, no acute process in the abdomen or the pelvis, right thyroid lobe nodule 1.7 cm
Data Reviewed
-
EKG: Report reviewed by me
Radiology: Report reviewed by me
CT Scan: Image personally visualized and interpreted and Report reviewed by me
Medical Tests (Nuc Med, Echo etc): Report reviewed by me
Labs: Labs reviewed by me
Old Records: Reviewed
Total Time Spent with Patient (in minutes): 65
[2024-12-18 11:00] VITALS: BP 141/80
--- NOTE | 2024-12-18 11:33 | CM ---
Alert awake oriented patient who lives alone in a 1 story home with 1 step. He is independent in driving and all ADLs. No adaptive devices.He is on oxygen here will need to watch for home needs.Offered VN he declined need.
No VN/SNF hx
Pharm[facility]
PCP [facility]
PLAN Home with needs ,
[2024-12-18 12:50] LABS: Glucose - Point of Care 174 mg/dl (70-99)
[2024-12-18 15:00] VITALS: BP 148/84
--- NOTE | 2024-12-18 15:05 | CARDSERVLU ---
Echocardiogram with [facility] completed after protocol screening completed. Allergies verified.
Patent IV site: __R AC___
IV site flushed with 0.9% NaCl pre and post administration.
Diluted bolus method utilized to enhance visualization of ventricular burrows.
Total volume given: 2.5 mL
Patient tolerated all procedures well without complications.
[2024-12-18 16:43] LABS: Glucose - Point of Care 205 mg/dl (70-99)
[2024-12-18] MEDS: NOVOLOG FLEXPEN-LOW RESISTANCE 2 UNITS SC (18:02)
[2024-12-18 20:05] VITALS: BP 152/87
[2024-12-18 21:21] LABS: Glucose - Point of Care 230 mg/dl (70-99)
[2024-12-18 23:49] VITALS: BP 147/93
[2024-12-19 03:14] VITALS: BP 156/86
[2024-12-19 04:59] VITALS: BMI 41.8
[2024-12-19 06:28] LABS: Hematocrit 42.1 % (39.0-52.0); Hemoglobin 13.9 g/dL (13.0-18.0); Mean Corp Hgb Conc. 33.0 g/dL (33.0-37.0); Mean Corpuscular Volume 92.7 fL (80.0-94.0); Platelet Count 164 10^3/uL (130-400); Red Cell Dist. Width 13.1 % (11.5-14.5)
[2024-12-19 06:49] LABS: APTT 143.3 Sec (23.4-35.0)
[2024-12-19 07:25] VITALS: BP 177/93
[2024-12-19 08:10] LABS: Glucose - Point of Care 128 mg/dl (70-99)
[2024-12-19] MEDS: NOVOLOG FLEXPEN-LOW RESISTANCE SC (08:13)
--- NOTE | 2024-12-19 08:28 | W.PN.PUL3 ---
Addendum entered and electronically signed by Gisselle Gibson MD 12/19/24 09:14:
Reviewed images at length with radiology
Able to glean some information regarding the IVC, abdominal, pelvic, lower extremity venous system with venous contrast during PE study
There is no obvious thromboembolic disease noted, suggesting that most if not all clot burden appears to be in the lung at this time.
Addendum entered and electronically signed by Gisselle Gibson MD 12/19/24 08:52:
Maintain n.p.o. except meds for now in the short-term
Will revisit later today depending on clinical status
Original Note:
Today's Communication / Plan
-
Hematuria noted
Restart heparin without bolus moving forward
Check PTT and fibrinogen in 2 hours
Urology evaluation
Consider transfer to IMU for closer monitoring
Remains high risk situation
Assessment
-
64-year-old non-smoking obese male with a history of kidney stones, hypertension, diabetes, gout and a right presented with sharp severe left lateral abdominal pain and found to have significant pulmonary emboli-pulmonary consulted for pulmonary
embolism management 12/18/2024.
Pulmonary embolism-submassive and unprovoked
D-dimer 1.43, troponin negative, proBNP 86
PESI-75, class II low risk
Doppler negative
Mild leukocytosis-WBC 11.9
Thyroid nodule-1.7 cm right thyroid
Hematuria
Nephrolithiasis, largest stone 1.2 cm right renal pelvis
Chronic per imaging
History of nephrolithiasis, chronic according to patient (never saw urology)
Mild aortic stenosis, valve area 1.8 cm�
Normal biventricular function, normal PA pressure per echo 12/18/2024
Conditions present prior to admission:
Morbid obesity-BMI 42
Obstructive sleep apnea suspected.
Hypertension.
Diabetes.
Gout
Plan/recommendations
At this time, patient appears to be comfortable without significant complaints except bilateral groin pain with urination
Hematuria noted at bedside, not grossly bloody
Urinalysis 12/17 at time of admission with 4+ red cells. Supratherapeutic PTT noted
Patient states he has chronic kidney stones
Echocardiogram with normal biventricular function
No abdominal pain on exam
EKG unremarkable
Moving forward
Encouraging that he is without symptoms
However, hematuria poses a challenge with regards to treatment for his saddle embolus
Reviewed at length with patient pathophysiology of thromboembolic disease, potential morbidity and mortality
Doppler study negative for DVT
Abdominal CT without any acute pathology except for chronic stones
We will restart heparin therapy no bolus moving forward. Will need to keep a close eye on PTT
Check baseline fibrinogen level
Close monitoring of bladder and development of obstructive uropathy with clots
Urology has been consulted. Unfortunately, at this time I do not think it is safe to withhold anticoagulation, but we may need to do this depending on clinical course
We will await urology evaluation
Would consider transfer to IMU for closer monitoring
Maintain bedrest for now
May require occasional bladder scan if patient not able to urinate
Hopefully can avoid need for surgical intervention at least in the short-term (3 to 5 days) to allow for at least some stability of clot
Will review with radiology if there is any evidence of clot in the abdomen, as IVC filter may need to be more seriously considered
The patient undoubtedly has obstructive sleep apnea-associations with untreated sleep apnea will be reviewed tachycardia and no hypotension-currently risks of aggressive thrombolytic therapy outweigh [id number] notified of options,
reasons for conservative standard of care therapy and is in agreement
Will leave thyroid ultrasound to primary team or in the outpatient setting
DVT prophylaxis-on full anticoagulation
Early nutrition
Early mobilization
Outpatient pulmonary/sleep disorders follow-up
Outpatient appropriate malignancy screening including colonoscopy and prostate exam
The patient undoubtedly has obstructive sleep apnea by symptoms-recommend outpatient sleep study and appropriate treatment
Reviewed with nursing at length
Reviewed with urology, primary service
Reviewed with patient at length
Remains high risk situation
TCCT 31 min
Diagnostic data:
CT chest abdomen and pelvis 12/17/2024-extensive bilateral saddle pulmonary emboli, no overt CT evidence for right ventricular strain, no acute process in the abdomen or the pelvis, right thyroid lobe nodule 1.7 cm
Subjective Data
-
Date of Service:
Date of Service: December 19, 2024
Subjective:
Patient is without any complaints. He does have some groin pain with urination but otherwise denies any chest pain, shortness of breath. He has a mild cough, no hemoptysis. Denies any lightheadedness, nausea. Conversant and in good spirits.
Hematuria noted
Objective Data
Data Reviewed
Vital Signs / I&O / Oxygen:
Vital Signs
Temp Pulse Resp BP Pulse Ox
98.4 F 75 16 177/93 93
12/19/24 07:25 12/19/24 07:25 12/19/24 07:25 12/19/24 07:25 12/19/24 07:25
Intake and Output
12/18/24 12/19/24 12/20/24
06:59 06:59 06:59
Intake Total 1440 / 1440
Output Total 900 / 900
Balance 540 / 540
SaO2 93
Nasal Cannula flow liters per 2
minute
Physical Exam
General: Comfortable and Other (Large neck)
HEENT: Normocephalic, Anicteric and Moist Mucous Membranes
Cardiovascular: S1-S2, Regular Rhythm, Murmur (n), Rub (n), Peripheral Edema (n) and Calf Tenderness (n)
Respiratory: Wheeze (n), Crackles (n), Rhonchi (n) and Non-Labored Respirations
GI: Soft, Non Distended (Obese) and Non Tender
Neurology: Awake, Alert and No Motor Deficits (Moves all extremities)
Skin: Cyanosis (n), Jaundice (n) and Rash (n)
Labs/Micro/Reports
Lab Data
12/19/24 06:18
12/18/24 08:03
Laboratory Results
12/19/24
06:18
APTT 143.3 H
Microbiology
12/17/24 14:23 Urine Urine Culture - Final
No Significant Growth
[2024-12-19] MEDS: TOPROL XL 50 MG PO (08:37)
[2024-12-19] MEDS: NSS (PRESERVATIVE FREE) 10 ML IV (08:38)
[2024-12-19] MEDS: PROTONIX IV 40 MG IV (08:38)
--- NOTE | 2024-12-19 08:51 | W.PN.HOSP.TC ---
Today's Communication/Plan
-
IV heparin
urology eval for hematuria
resume losartan
move to IMU
Assessment / Plan
Assessment / Plan
64M with hypertension and DM-II p/w L abdominal pain, SOB, dizziness, found to have large / extensive PE.
Pulmonary Embolism
Acute Hypoxemic Respiratory Failure secondary to the above
- CT A/P done in the ED shows large saddle embolus with smaller, scattered, bilateral emboli throughout the lungs.
- IV heparin to continue
- echo done no R heart strain
- US lower extremities negative for DVTs
- No clear trigger and patient will require further evaluation / age-appropriate cancer screenings, etc.
- Continue supplemental O2 and wean as able.
- Follow for any clinical changes.
- pulm consulted, now pt with hematuria, if this persists may not be able to continue a/c, however need to continue for now, may need filter
Hematuria
started while on heparin
reviewed CT report, noted to have nonobstructing R renal stone
continue heparin for now and monitor
pul has consulted with urology and they have seen the pt as this will impact PE mgmt. At this time too high risk with acute saddle PE for OR.
Benign Hypertension
- BP elevated. Continue metoprolol with holding parameters.
resume losartan
DM-II
- BG controlled. Hold metformin inpatient
- Follow glucose and cover with SSI if needed.
- A1C 8.2%
Morbid Obesity due to excess calories
- Affects all aspects of care.
- Encourage healthy diet and increased activity with goal of weight loss.
Suspected CAMILA
pulm eval/tx
O2 prn
DVT Prophylaxis: On IV heparin
after d/w pulm, moving pt to IMU for closer monitoring
Code Status: Full
Anticipated Discharge: 24 - 48 hours
Subjective/Interval History
-
Date of Service: December 19, 2024
Pt having hematuria, worse today.
Objective Data
-
Labs:
Laboratory Results
12/19/24
06:18
WBC 9.2
Hgb 13.9
Hct 42.1
Plt Count 164
APTT 143.3 H
Vital Signs:
Vital Signs
Temp Pulse Resp BP Pulse Ox
98.4 F 75 16 177/93 93
12/19/24 07:25 12/19/24 08:37 12/19/24 07:25 12/19/24 08:37 12/19/24 07:25
I&O
12/18/24 12/19/24 12/20/24
06:59 06:59 06:59
Intake Total 1440 / 1440
Output Total 900 / 900
Balance 540 / 540
Review of Systems
-
All other systems: Reviewed and negative
Physical Exam
-
General: No Apparent Distress and Obese
HEENT: Moist Mucous Membranes, Anicteric and PERRLA
Respiratory: Clear to Auscultation; Negative Wheezes, Rales or Rhonchi
Cardiac: Regular Rhythm and S1/S2; Negative Murmur, Rub or Gallop
GI: Soft, Nontender, Nondistended and Normal Bowel Sounds
Musculoskeletal: No Edema
Skin: Warm and Dry; Negative Rash, Ulcers or Lesions
Neuro: Awake and AO x 3
Hematologic / Lymphatic: No Lymphadenopathy
Psych: Calm
Data Reviewed
-
CT Scan: Report Reviewed by me (Chest: Saddle pulmonary embolus is present with pulmonary emboli extending into all right lobar and numerous right segmental and subsegmental pulmonary arteries, as well as into left upper lobe are and segmental
pulmonary arteries. No overt right heart dilatation.) and Other (Abdomen/pelvis: Stable nonobstructing 1.2 cm right renal pelvis calculus. Additional punctate nonobstructing bilateral renal calculi. No hydronephrosis. Bilateral hypoattenuating renal
lesions, some which are compatible with simple cysts and others which are too small to accurately characterize, martinez)
Labs: Labs Reviewed by me
--- NOTE | 2024-12-19 09:22 | CON.MD ---
Consultation - Medical
-
see dictated note
pt has not ever seen urology- no hx of luts/uti or hematuria
presented to ER 10/21 with right renal colic- had 4mm distal urteral stone and >1cm right renal pelvis stone- was referred to urology but did not make appointment
presented to ER last night with abd pain- CT showed non obstrucive stone in right renal pelvis- UA + for blood but yellow
work up then also revealed large saddle PE- negative peripheral vasc u/s- started on heparin
PTT was supra-therapeutic this am and pt developed GPH- heparin briefly held
at bedside now- pt is not having any colic
has not voided again- but he reports no sense of fullness or pain
plan
very difficult situation
reviewed with pulm team- PE is 'unstable'- high risk
suspect that hematuria is due to stone- but can not be certain
heparin has been restarted- pt being moved to IMU for closer monitoring
will begin flomax and trend hematuria
intervention and stopping of blood thinners would be required if colic becomes unmanageable OR hematuria does
will follow closely
Consultation
-
Date/Time Consultation Requested: 12/18/24 at 8:45 am
Date/Time Consultation Performed: 12/18/24 at 9:15 am
Requesting Provider: Dr Gibson
Performing Provider: Dr Wilburn
Reason for Consultation: Hematuria
[2024-12-19] MEDS: COZAAR 100 MG PO (09:38)
[2024-12-19] MEDS: FLOMAX 0.4 MG PO (09:38)
--- NOTE | 2024-12-19 10:33 | PTCARENOTE ---
Pt is transferring to higher level of care. IMU room 3350. Gave report to Jenniffer SAMANIEGO. Pt is transferring due to B/L PE and now michele Hematuria. Took pt on stretcher with transport without incident
[2024-12-19 11:42] LABS: Glucose - Point of Care 151 mg/dl (70-99)
[2024-12-19] MEDS: NOVOLOG FLEXPEN-LOW RESISTANCE 1 UNITS SC ×2 (11:47→17:46)
[2024-12-19 11:52] LABS: APTT 71.3 Sec (23.4-35.0)
[2024-12-19 12:30] LABS: Fibrinogen 479 MG/DL (199-459)
[2024-12-19] MEDS: HEPARIN 25000 UNITS/250 ML IV (12:39)
[2024-12-19 17:00] LABS: APTT 54.3 Sec (23.4-35.0)
[2024-12-19 17:59] LABS: Glucose - Point of Care 195 mg/dl (70-99)
[2024-12-19] MEDS: TYLENOL 650 MG PO (18:14)
--- NOTE | 2024-12-19 19:41 | PTCARENOTE ---
day shift note. recieved pt from 4th floor d/t blood in urine and pt on heparin drip. no changes in assessment as documented by 4th floor rn. pt oriented to new room. heparin infusing and no bolus to be given per Arthur. pt denies shortness of
breath. o2 at 2 liters. voiding in urinal brownish maroon urine with no clots visible.
[2024-12-19 21:47] LABS: Glucose - Point of Care 172 mg/dl (70-99)
[2024-12-20 00:31] LABS: APTT 95.3 Sec (23.4-35.0)
[2024-12-20] MEDS: HEPARIN 25000 UNITS/250 ML IV ×2 (02:09→16:20)
--- NOTE | 2024-12-20 03:44 | PTCARENOTE ---
Assumed care of patient from skyemtbruno RN. Pt aaox3. NSR on monitor with occasional PACs. SpO2 95% on RA. Pt denies any pain at this time. Pt urinated 400 mL of brick colored urine into the urinal. Vitals signs and assessment as documented. Heparin
gtt infusing at 21 mL/hr. Pt resting in bed with call gomes in reach.
[2024-12-20 05:18] VITALS: BMI 42.0
[2024-12-20 06:26] LABS: Hematocrit 44.9 % (39.0-52.0); Hemoglobin 14.7 g/dL (13.0-18.0); Mean Corp Hgb Conc. 32.7 g/dL (33.0-37.0); Mean Corpuscular Volume 92.6 fL (80.0-94.0); Platelet Count 171 10^3/uL (130-400); Red Cell Dist. Width 13.0 % (11.5-14.5)
[2024-12-20 06:45] LABS: APTT 123.2 Sec (23.4-35.0)
[2024-12-20 07:42] LABS: Blood Urea Nitrogen 13 mg/dl (9-20); Calcium 9.2 mg/dl (8.4-10.2); Carbon Dioxide 26 mmol/L (22-30); Chloride 108 mmol/L (98-107); Estimated Creatinine Clearance > 125 ml/min; Glucose 151 mg/dl (70-99); Potassium 4.2 mmol/L (3.5-5.1); Sodium 139 mmol/L (135-145); eGFR > 60.00
--- NOTE | 2024-12-20 08:14 | W.PN.URO.CBU ---
Today's Communication / Plan
-
continue heparin and observe hematuria
Assessment / Plan
-
saddle PE on anticoagulation
large right renal stone- no hydro and no colic at this time
hematuria- ? source
reviewed with pt
hematuria may be due to stone-and CT negative for other etiologies- but needs cysto at some point
discussed with pulm team
again very high risk situation- for now PE greater concern and although pt having hematuria- this is causing not voiding difficulties and in short term unlikely to cause sig anemia
plan to continue heparin today and observe- if stable to convert to lovenox tomorrow- in 3 weeks would be eligible for 24hr hold of anticoagulation and cysto to try and efine bleeding site and formulate plan
if hematuria becomes more problematic before this- would need to hold blood thinners for eval and treatment
Diagnosis
-
Date of Service: December 20, 2024
-
Patient Diagnosis:
saddle PE
right renal stone
hematuria
Subjective
-
pt has had no renal colic
urine remains brick red but no trouble urinating and no clots
Objective
-
Vital Signs
Temp Pulse Resp BP Pulse Ox
98.1 F 75 16 177/93 95
12/20/24 02:55 12/19/24 08:37 12/19/24 07:25 12/19/24 08:37 12/19/24 22:17
Intake and Output
12/19/24 12/20/24 12/21/24
06:59 06:59 06:59
Intake Total 1440 / 1440 480 / 480
Output Total 900 / 900 900 / 900
Balance 540 / 540 -420 / -420
Intake:
Oral fluids 1440 / 1440 480 / 480
Output:
Urine, Voided 900 / 900 900 / 900
Laboratory Results
12/20/24 06:16
12/20/24 06:16
Physical Exam
-
General - no acute distress
[2024-12-20] MEDS: TOPROL XL 50 MG PO (08:32)
[2024-12-20] MEDS: PROTONIX IV 40 MG IV (08:33)
[2024-12-20] MEDS: FLOMAX 0.4 MG PO (08:33)
[2024-12-20] MEDS: COZAAR 100 MG PO (08:33)
[2024-12-20] MEDS: NSS (PRESERVATIVE FREE) 10 ML IV (08:34)
[2024-12-20] MEDS: NOVOLOG FLEXPEN-LOW RESISTANCE 1 UNITS SC ×2 (08:41→18:22)
[2024-12-20 08:51] LABS: Glucose - Point of Care 170 mg/dl (70-99)
--- NOTE | 2024-12-20 09:07 | W.PN.HOSP.TC ---
Today's Communication/Plan
-
Continue IV heparin, monitor hematuria and blood count
Assessment / Plan
Assessment / Plan
64M with hypertension and DM-II p/w L abdominal pain, SOB, dizziness, found to have large / extensive PE.
Pulmonary Embolism
Acute Hypoxemic Respiratory Failure secondary to the above
- CT A/P done in the ED shows large saddle embolus with smaller, scattered, bilateral emboli throughout the lungs.
- IV heparin to continue. Defer to pulm when to transition.
- echo done no R heart strain
- US lower extremities negative for DVTs
- No clear trigger and patient will require further evaluation / age-appropriate cancer screenings, etc.
- Continue supplemental O2 and wean as able.
- Follow for any clinical changes.
- pulm consulted, now pt with hematuria, if this persists may not be able to continue a/c, however need to continue for now, may need filter, see below
Hematuria
started while on heparin
reviewed CT report, noted to have nonobstructing R renal stone
continue heparin for now and monitor. H&H is stable.
pulm has consulted with urology and they have seen the pt as this will impact PE mgmt. Per their recs if his right-sided pain or hematuria became unmanageable patient would require cystoscopy and potential stent placement but would have to be off
heparin for that. This was discussed with mri supervisor who felt that at this time patient is too high risk with acute saddle PE for OR.
Benign Hypertension
- BP control. Continue metoprolol and losartan with holding parameters.
DM-II
- BG controlled. Hold metformin inpatient
- Follow glucose and cover with SSI if needed.
- A1C 8.2%
Morbid Obesity due to excess calories
- Affects all aspects of care.
- Encourage healthy diet and increased activity with goal of weight loss.
Suspected CAMILA
pulm eval/tx
O2 prn
DVT Prophylaxis: On IV heparin
Code Status: Full
Anticipated Discharge: 24 - 48 hours
Subjective/Interval History
-
Date of Service: December 20, 2024
Patient continues to have dark bloody urine, denies any other bleeding, no hemoptysis. Discussed with RN he is desatting at night without oxygen and during the daytime however around 91% without oxygen.
Objective Data
-
Labs:
Laboratory Results
12/20/24 12/20/24 12/20/24
00:03 06:16 13:15
WBC 7.7
Hgb 14.7
Hct 44.9
Plt Count 171
APTT 95.3 H 123.2 H Pending
Sodium 139
Potassium 4.2
Chloride 108 H
Carbon Dioxide 26
BUN 13
Creatinine 0.7
Glucose 151 H
Calcium 9.2
Vital Signs:
Vital Signs
Temp Pulse Resp BP Pulse Ox
97.9 F 72 16 145/85 95
12/20/24 08:14 12/20/24 08:33 12/19/24 07:25 12/20/24 08:33 12/19/24 22:17
I&O
12/19/24 12/20/24 12/21/24
06:59 06:59 06:59
Intake Total 1440 / 1440 480 / 480
Output Total 900 / 900 900 / 900
Balance 540 / 540 -420 / -420
Review of Systems
-
All other systems: Reviewed and negative
Physical Exam
-
General: No Apparent Distress and Obese
HEENT: Moist Mucous Membranes, Anicteric and PERRLA
Respiratory: Clear to Auscultation; Negative Wheezes, Rales or Rhonchi
Cardiac: Regular Rhythm and S1/S2; Negative Murmur, Rub or Gallop
GI: Soft, Nontender, Nondistended and Normal Bowel Sounds
Musculoskeletal: No Edema
Skin: Warm and Dry; Negative Rash, Ulcers or Lesions
Neuro: Awake and AO x 3
Hematologic / Lymphatic: No Lymphadenopathy
Psych: Calm
Data Reviewed
-
CT Scan: Report Reviewed by me (Chest: Saddle pulmonary embolus is present with pulmonary emboli extending into all right lobar and numerous right segmental and subsegmental pulmonary arteries, as well as into left upper lobe are and segmental
pulmonary arteries. No overt right heart dilatation.) and Other (Abdomen/pelvis: Stable nonobstructing 1.2 cm right renal pelvis calculus. Additional punctate nonobstructing bilateral renal calculi. No hydronephrosis. Bilateral hypoattenuating renal
lesions, some which are compatible with simple cysts and others which are too small to accurately characterize, martinez)
Labs: Labs Reviewed by me
[2024-12-20 12:06] LABS: Glucose - Point of Care 338 mg/dl (70-99)
[2024-12-20] MEDS: NOVOLOG FLEXPEN-LOW RESISTANCE 4 UNITS SC (13:28)
[2024-12-20 14:26] LABS: APTT 71.0 Sec (23.4-35.0)
--- NOTE | 2024-12-20 15:23 | W.PN.PUL3 ---
Addendum entered and electronically signed by Gisselle Gibson MD 12/20/24 15:28:
I spoke with pharmacy
I ordered Lovenox 150 mg in the morning at 8 AM
Heparin to be stopped at 7:30 AM
Pharmacy will help facilitate
Original Note:
Today's Communication / Plan
-
Transition to Lovenox 1 mg/kg in the a.m.
Discontinue heparin after Lovenox administered in a.m.
Ambulate and check saturation in a.m.
Plan to continue home injections with Lovenox for the next 3 to 4 weeks
Pulmonary evaluation in 2 to 3 weeks
Cystoscopy as outpatient in 3 to 4 weeks, okay to hold Lovenox as long as patient is doing well in the interim
Disposition efforts
Assessment
-
64-year-old non-smoking obese male with a history of kidney stones, hypertension, diabetes, gout and a right presented with sharp severe left lateral abdominal pain and found to have significant pulmonary emboli-pulmonary consulted for pulmonary
embolism management 12/18/2024.
Pulmonary embolism-submassive and unprovoked
D-dimer 1.43, troponin negative, proBNP 86
PESI-75, class II low risk
Doppler negative
Mild leukocytosis-WBC 11.9
Thyroid nodule-1.7 cm right thyroid
Hematuria
Nephrolithiasis, largest stone 1.2 cm right renal pelvis
Chronic per imaging
History of nephrolithiasis, chronic according to patient (never saw urology)
Mild aortic stenosis, valve area 1.8 cm�
Normal biventricular function, normal PA pressure per echo 12/18/2024
Conditions present prior to admission:
Morbid obesity-BMI 42
Obstructive sleep apnea suspected.
Hypertension.
Diabetes.
Gout
Plan/recommendations
At this time, patient appears to be comfortable without any complaints
Continues with hematuria
Urinalysis 8/21 at time of admission with 4+ red cells. Supratherapeutic PTT noted
Patient states he has chronic kidney stones
Echocardiogram with normal biventricular function
No abdominal pain on exam
EKG unremarkable
Moving forward
Encouraging that he is without symptoms
However, hematuria poses a challenge with regards to treatment for his saddle embolus
Reviewed at length with patient pathophysiology of thromboembolic disease, potential morbidity and mortality
Doppler study negative for DVT
Abdominal CT without any acute pathology, and also no evidence of clot on venous phase per review with radiology
Continue with heparin therapy for now
Consider transition to Lovenox 1 mg/kg starting 12/21
Best case scenario, will continue Lovenox therapy as outpatient (patient states he is willing to administer with teaching)
This will continue for the next 3 to 4 weeks at which time he will follow-up with urology and pulmonary
Okay to hold Lovenox for 24 hours after 3 weeks for planned cystoscopy in urology office
Ideally, patient will see pulmonary prior to this
Out of bed to chair, ambulate in the a.m.
The patient undoubtedly has obstructive sleep apnea-associations with untreated sleep apnea will be reviewed tachycardia and no hypotension-currently risks of aggressive thrombolytic therapy outweigh [id number] notified of options,
reasons for conservative standard of care therapy and is in agreement
Will leave thyroid ultrasound to primary team or in the outpatient setting
DVT prophylaxis-on full anticoagulation
Outpatient pulmonary/sleep disorders follow-up
Outpatient appropriate malignancy screening including colonoscopy and prostate exam
Reviewed with urology
Diagnostic data:
CT chest abdomen and pelvis 12/17/2024-extensive bilateral saddle pulmonary emboli, no overt CT evidence for right ventricular strain, no acute process in the abdomen or the pelvis, right thyroid lobe nodule 1.7 cm
Subjective Data
-
Date of Service:
Date of Service: December 20, 2024
Subjective:
Patient examined earlier today. He is without complaint. Denies abdominal pain, difficulty urinating, pain with urination, shortness of breath, chest pain, lightheadedness, dizziness. Remains on heparin therapy.
Objective Data
Data Reviewed
Vital Signs / I&O / Oxygen:
Vital Signs
Temp Pulse Resp BP Pulse Ox
98.1 F 72 16 145/85 91
12/20/24 11:21 12/20/24 08:33 12/19/24 07:25 12/20/24 08:33 12/20/24 10:53
Intake and Output
12/19/24 12/20/24 12/21/24
06:59 06:59 06:59
Intake Total 1440 / 1440 480 / 480
Output Total 900 / 900 900 / 900
Balance 540 / 540 -420 / -420
SaO2 91
Nasal Cannula flow liters per 2
minute
Physical Exam
General: Comfortable and Other (Large neck)
HEENT: Normocephalic, Anicteric and Moist Mucous Membranes
Cardiovascular: S1-S2, Regular Rhythm, Murmur (n), Rub (n), Peripheral Edema (n) and Calf Tenderness (n)
Respiratory: Wheeze (n), Crackles (n), Rhonchi (n) and Non-Labored Respirations
GI: Soft, Non Distended (Obese) and Non Tender
Neurology: Awake, Alert and No Motor Deficits (Moves all extremities)
Skin: Cyanosis (n), Jaundice (n) and Rash (n)
Labs/Micro/Reports
Lab Data
12/20/24 06:16
12/20/24 06:16
Laboratory Results
12/19/24 12/20/24 12/20/24
16:39 00:03 06:16
APTT 54.3 H 95.3 H 123.2 H
12/20/24
13:54
APTT 71.0 H
Microbiology
12/17/24 14:23 Urine Urine Culture - Final
No Significant Growth
[2024-12-20] MEDS: TYLENOL 650 MG PO (17:33)
[2024-12-20 18:10] LABS: Glucose - Point of Care 161 mg/dl (70-99)
[2024-12-20 21:35] LABS: Glucose - Point of Care 187 mg/dl (70-99)
[2024-12-20 21:43] LABS: APTT 73.3 Sec (23.4-35.0)
--- NOTE | 2024-12-20 23:34 | PTCARENOTE ---
Assumed care of pt from julius RN. Pt aaox3, denies any pain. NSR on monitor, hr 80s. SpO2 94% on RA. Heparin gtt infusing @ 2100 u/hr. Pt resting in bed with call gomes in reach.
--- NOTE | 2024-12-21 03:03 | PTCARENOTE ---
Pt c/o swelling in his right knee, which is warm and red. Pt has a hx of gout and per pt this is one of the areas that is typically affected. Pt takes allopurinol daily at home. [employer] notified. Uric acid added to morning labs and
allopurinol ordered.
[2024-12-21] MEDS: HEPARIN 25000 UNITS/250 ML IV (03:47)
[2024-12-21 03:53] VITALS: BMI 41.3
[2024-12-21 04:20] LABS: Hematocrit 43.1 % (39.0-52.0); Hemoglobin 14.1 g/dL (13.0-18.0); Mean Corp Hgb Conc. 32.7 g/dL (33.0-37.0); Mean Corpuscular Volume 92.5 fL (80.0-94.0); Platelet Count 186 10^3/uL (130-400); Red Cell Dist. Width 13.1 % (11.5-14.5)
[2024-12-21 04:26] LABS: APTT 108.9 Sec (23.4-35.0)
[2024-12-21 05:18] LABS: Blood Urea Nitrogen 12 mg/dl (9-20); Calcium 8.8 mg/dl (8.4-10.2); Carbon Dioxide 22 mmol/L (22-30); Chloride 108 mmol/L (98-107); Estimated Creatinine Clearance > 125 ml/min; Glucose 234 mg/dl (70-99); Potassium 4.3 mmol/L (3.5-5.1); Sodium 138 mmol/L (135-145); Uric Acid 6.1 mg/dl (3.5-8.5); eGFR > 60.00
--- NOTE | 2024-12-21 07:35 | W.PN.URO.CBU ---
Today's Communication / Plan
-
observe hematuria
pulm plan to convert to lovenox
Assessment / Plan
-
saddle PE on anticoagulation
large right renal stone- no hydro and no colic at this time
hematuria- ? source
reviewed with pt
hematuria may be due to stone-and CT negative for other etiologies- but needs cysto at some point
discussed with pulm team
again very high risk situation- for now PE greater concern and although pt having hematuria- this is causing not voiding difficulties and in short term unlikely to cause sig anemia
plan to convert to lovenox today-- in 3 weeks would be eligible for 24hr hold of anticoagulation and cysto to try and define bleeding site and formulate plan
if hematuria becomes more problematic before this- would need to hold blood thinners for eval and treatment
Diagnosis
-
Date of Service: December 21, 2024
-
Patient Diagnosis:
saddle PE
right renal stone
hematuria
Subjective
-
pt says he feels ok
has not been UOOB much
no trouble urinating- urine remains brick red- no clots
Objective
-
Vital Signs
Temp Pulse Resp BP Pulse Ox
98.3 F 72 16 145/85 95
12/21/24 03:00 12/20/24 08:33 12/19/24 07:25 12/20/24 08:33 12/20/24 23:27
Intake and Output
12/20/24 12/21/24 12/22/24
06:59 06:59 06:59
Intake Total 480 / 480
Output Total 900 / 900
Balance -420 / -420
Intake:
Oral fluids 480 / 480
Output:
Urine, Voided 900 / 900
Other:
Number of approximated MODERATE 1
amounts of urine
Laboratory Results
12/21/24 03:54
12/21/24 03:54
Review of Systems
-
Constitutional: No Symptoms
Respiratory: Other (mild SOB)
Cardiac: No Symptoms
Abdomen/GI: No Symptoms
: Bleeding
Physical Exam
-
General - no acute distress
Abdomen - soft, non-tender
Genitalia - normal
[2024-12-21] MEDS: PROTONIX IV 40 MG IV (08:02)
[2024-12-21] MEDS: NSS (PRESERVATIVE FREE) 10 ML IV (08:03)
[2024-12-21] MEDS: LOVENOX 150 MG SC ×2 (08:03→20:26)
[2024-12-21] MEDS: FLOMAX 0.4 MG PO (08:04)
[2024-12-21] MEDS: ZYLOPRIM 100 MG PO (08:07)
[2024-12-21] MEDS: COZAAR 100 MG PO (08:07)
[2024-12-21] MEDS: TOPROL XL 50 MG PO (08:08)
[2024-12-21] MEDS: NOVOLOG FLEXPEN-LOW RESISTANCE 1 UNITS SC ×2 (08:18→12:38)
[2024-12-21 08:25] LABS: Glucose - Point of Care 150 mg/dl (70-99)
--- NOTE | 2024-12-21 09:31 | W.PN.PUL3 ---
Today's Communication / Plan
-
Tolerating lovenox Sq, to be continued as OP
Home O2 eval
Outpatient pulmonary, sleep FU recommended
Discharge planning otherwise per team
Assessment
-
64-year-old non-smoking obese male with a history of kidney stones, hypertension, diabetes, gout and a right presented with sharp severe left lateral abdominal pain and found to have significant pulmonary emboli-pulmonary consulted for pulmonary
embolism management 12/18/2024.
Pulmonary embolism-submassive and unprovoked
D-dimer 1.43, troponin negative, proBNP 86
PESI-75, class II low risk
Doppler negative
Mild leukocytosis-WBC 11.9
Thyroid nodule-1.7 cm right thyroid
Hematuria
Nephrolithiasis, largest stone 1.2 cm right renal pelvis
Chronic per imaging
History of nephrolithiasis, chronic according to patient (never saw urology)
Mild aortic stenosis, valve area 1.8 cm�
Normal biventricular function, normal PA pressure per echo 12/18/2024
Conditions present prior to admission:
Morbid obesity-BMI 42
Obstructive sleep apnea suspected.
Hypertension.
Diabetes.
Gout
Plan/recommendations
At this time, patient appears to be comfortable without any complaints
Remains on 2L but not known to be on home O2, eventual home O2 eval
Continues with hematuria
Urinalysis 12/17 at time of admission with 4+ red cells. Supratherapeutic PTT noted
Patient states he has chronic kidney stones
Echocardiogram with normal biventricular function
No abdominal pain on exam
EKG unremarkable
Moving forward
Encouraging that he is without symptoms
However, hematuria poses a challenge with regards to treatment for his saddle embolus
Reviewed at length with patient pathophysiology of thromboembolic disease, potential morbidity and mortality
Doppler study negative for DVT
Abdominal CT without any acute pathology, and also no evidence of clot on venous phase per review with radiology
Transitioned to Lovenox 1 mg/kg starting 12/21
Best case scenario, will continue Lovenox therapy as outpatient (patient states he is willing to administer with teaching)
This will continue for the next 3 to 4 weeks at which time he will follow-up with urology and pulmonary
Okay to hold Lovenox for 24 hours after 3 weeks for planned cystoscopy in urology office
Ideally, patient will see pulmonary prior to this
Out of bed to chair, ambulate in the a.m.
The patient undoubtedly has obstructive sleep apnea-associations with untreated sleep apnea will be reviewed tachycardia and no hypotension-currently risks of aggressive thrombolytic therapy outweigh [id number] notified of options,
reasons for conservative standard of care therapy and is in agreement
OP Sleep FU recommended, reviewed again today
Will leave thyroid ultrasound to primary team or in the outpatient setting
DVT prophylaxis-on full anticoagulation
Outpatient pulmonary/sleep disorders follow-up
Outpatient appropriate malignancy screening including colonoscopy and prostate exam
Reviewed with urology
D/c planning per team
Diagnostic data:
CT chest abdomen and pelvis 12/17/2024-extensive bilateral saddle pulmonary emboli, no overt CT evidence for right ventricular strain, no acute process in the abdomen or the pelvis, right thyroid lobe nodule 1.7 cm
Duplex 12/18/24- No evidence of deep venous thrombosis bilaterally.
ECHO 12/18/24: 1. Normal left ventricular size, wall thickness and systolic function.Left ventricular ejection fraction is normal.
2. Ejection fraction is 60-65% by Mcginnis's method of discs.
3. Right ventricular size and systolic function are within normal limits.
4. Mild aortic valve stenosis. Aortic valve area = 1.78 cm².
5. Aorta at Sinus of Valsalva is 3.7cm, Ascending aorta is mildy dilated at 3.8cm.
6. Trace tricuspid regurgitation. Estimated pulmonary artery pressure of 23 mmHg assuming a right atrial pressure of 3 mmHg.
7. There are no prior studies available for comparison.
Total time spent on this consultation/encounter __50__ minutes which includes review of history, physical exam, medications, laboratory data, personal review of imaging, extensive review of outpatient records, discussion with care team and
respiratory therapy.
Subjective Data
-
Date of Service:
Date of Service: December 21, 2024
Chief Complaint: Pulmonary Follow Up
Subjective:
No new complaints, in bed, remains on 2L
Tolerating lovenox SQ
Objective Data
Data Reviewed
Vital Signs / I&O / Oxygen:
Vital Signs
Temp Pulse Resp BP Pulse Ox
97.8 F 79 16 124/84 95
12/21/24 08:20 12/21/24 08:08 12/19/24 07:25 12/21/24 08:08 12/20/24 23:27
Intake and Output
12/20/24 12/21/24 12/22/24
06:59 06:59 06:59
Intake Total 480 / 480
Output Total 900 / 900
Balance -420 / -420
SaO2 95
Nasal Cannula flow liters per 2
minute
Physical Exam
General: Comfortable and Other (Large neck, morbid obesity)
HEENT: Normocephalic, Anicteric and Moist Mucous Membranes
Cardiovascular: S1-S2, Regular Rhythm, Murmur (n), Rub (n), Peripheral Edema (n) and Calf Tenderness (n)
Respiratory: Clear, Wheeze (n), Crackles (n), Rhonchi (n) and Non-Labored Respirations
GI: Soft, Non Distended (Obese) and Non Tender
Neurology: Awake, Alert, Oriented and No Motor Deficits (Moves all extremities)
Skin: Cyanosis (n), Jaundice (n) and Rash (n)
Labs/Micro/Reports
Lab Data
12/21/24 03:54
12/21/24 03:54
Laboratory Results
12/20/24 12/20/24 12/21/24
13:54 21:23 03:54
APTT 71.0 H 73.3 H 108.9 H
Microbiology
12/17/24 14:23 Urine Urine Culture - Final
No Significant Growth
[2024-12-21 11:58] LABS: Glucose - Point of Care 169 mg/dl (70-99)
--- NOTE | 2024-12-21 13:03 | W.PN.HOSP.TC ---
Today's Communication/Plan
-
Monitor vital signs see plan
Transfer out of IMU
Continue with Lovenox
Home O2 evaluation
monitor hematuria
Assessment / Plan
Assessment / Plan
64M with hypertension and DM-II p/w L abdominal pain, SOB, dizziness, found to have large / extensive PE.
Pulmonary Embolism
Acute Hypoxemic Respiratory Failure secondary to the above. Wean oxygen as tolerated. Will need home O2 evaluation prior to discharge
- CT A/P done in the ED shows large saddle embolus with smaller, scattered, bilateral emboli throughout the lungs.
- IV heparin to continue. Defer to pulm when to transition.
- echo done no R heart strain
- US lower extremities negative for DVTs
- No clear trigger and patient will require further evaluation / age-appropriate cancer screenings, etc.
- Continue supplemental O2 and wean as able.
- Follow for any clinical changes.
- pulm consulted, now pt with hematuria, if this persists then may need evaluation. Pulmonary following. Transition to Lovenox. Urology following for hematuria. In 3 weeks will be eligible for 24-hour hold of anticoagulation with possibility of
cystoscopy at that time. Currently monitor hematuria on Lovenox, however if profuse bleeding then may need filter, see below
Hematuria
started while on heparin
reviewed CT report, noted to have nonobstructing R renal stone
continue heparin for now and monitor. H&H is stable.
pulm has consulted with urology and they have seen the pt as this will impact PE mgmt. Per their recs if his right-sided pain or hematuria became unmanageable patient would require cystoscopy and potential stent placement but would have to be off
heparin for that. This was discussed with career technology teacher who felt that at this time patient is too high risk with acute saddle PE for OR.
Benign Hypertension
- BP control. Continue metoprolol and losartan with holding parameters.
DM-II
- BG controlled. Hold metformin inpatient
- Follow glucose and cover with SSI if needed.
- A1C 8.2%
Morbid Obesity due to excess calories
- Affects all aspects of care.
- Encourage healthy diet and increased activity with goal of weight loss.
Suspected CAMILA
pulm eval/tx
O2 prn
DVT Prophylaxis: Lovenox
Code Status: Full
General: No Apparent Distress and Obese
HEENT: Moist Mucous Membranes, Anicteric and PERRLA
Respiratory: Clear to Auscultation; Negative Wheezes, Rales or Rhonchi
Cardiac: Regular Rhythm and S1/S2; Negative Murmur, Rub or Gallop
GI: Soft, Nontender, Nondistended and Normal Bowel Sounds
Musculoskeletal: No Edema
Neuro: Awake and AO x 3
Psych: Calm
I spent a total of 52 minutes with the patient or on the floor. More than 50% of this time involved counseling and coordination of care.
Anticipated Discharge: Within 24 hours
Subjective/Interval History
-
Date of Service: December 21, 2024
Denies pain
Objective Data
-
Labs:
Laboratory Results
12/21/24
03:54
WBC 9.4
Hgb 14.1
Hct 43.1
Plt Count 186
APTT 108.9 H
Sodium 138
Potassium 4.3
Chloride 108 H
Carbon Dioxide 22
BUN 12
Creatinine 0.8
Glucose 234 H
Calcium 8.8
Vital Signs:
Vital Signs
Temp Pulse Resp BP Pulse Ox
99.1 F 79 16 124/84 96
12/21/24 11:42 12/21/24 08:08 12/19/24 07:25 12/21/24 08:08 12/21/24 11:16
I&O
12/20/24 12/21/24 12/22/24
06:59 06:59 06:59
Intake Total 480 / 480
Output Total 900 / 900
Balance -420 / -420
[2024-12-21] MEDS: TYLENOL 650 MG PO ×2 (14:26→22:12)
--- NOTE | 2024-12-21 15:30 | CM ---
CM reviewed pt with attending, pt will need Lovenox on dc
Home O2 eval pending
Bedside meeting with pt- VN offeted
Pt declined- he was CG for his spouse and gave injections and managed his 's
He feels comfortable without VN
Discharge Disposition- home, declined VN, watch for home O2 needs
[2024-12-21] MEDS: ANTIVERT 12.5 MG PO (16:52)
[2024-12-21 16:53] LABS: Glucose - Point of Care 265 mg/dl (70-99)
[2024-12-21] MEDS: NOVOLOG FLEXPEN-LOW RESISTANCE 3 UNITS SC (16:53)
[2024-12-21 19:51] VITALS: BP 130/91
--- NOTE | 2024-12-21 19:55 | PTCARENOTE ---
Received patient from IMU via wheelchair. Patient ambulated from wheelchair to bed with minimal assistance. AAOx3, no current complaints of pain. Oriented patient to room and placed call gomes within reach.
[2024-12-21 21:54] LABS: Glucose - Point of Care 195 mg/dl (70-99)
[2024-12-21 23:50] VITALS: BP 135/69
[2024-12-22 03:48] VITALS: BP 122/77
[2024-12-22 06:00] VITALS: BMI 41.0
[2024-12-22 07:00] VITALS: BP 128/66
--- NOTE | 2024-12-22 07:34 | W.PN.URO.CBU ---
Today's Communication / Plan
-
continue flomax
outpt f/u with dr adams
Assessment / Plan
-
saddle PE on anticoagulation
large right renal stone- no hydro and no colic at this time
hematuria- ? source
reviewed with pt
hematuria may be due to stone-and CT negative for other etiologies- but needs cysto at some point
discussed with pulm team
again very high risk situation- for now PE greater concern and although pt having hematuria- this is causing not voiding difficulties and in short term unlikely to cause sig anemia
plan to convert to lovenox today-- in 3 weeks would be eligible for 24hr hold of anticoagulation and cysto to try and define bleeding site and formulate plan
if hematuria becomes more problematic before this- would need to hold blood thinners for eval and treatment
he appears stable- plan to discharge with flomax and make outpt f/u with dr adams to discuss timing of cysto
Diagnosis
-
Date of Service: December 22, 2024
-
Patient Diagnosis:
saddle PE
right renal stone
hematuria
Subjective
-
pt out of IMU
feels better
off heparin- says urine is clearing up
Objective
-
Vital Signs
Temp Pulse Resp BP Pulse Ox
99.5 F 81 20 122/77 94
12/22/24 03:48 12/22/24 03:48 12/22/24 03:48 12/22/24 03:48 12/22/24 03:48
Intake and Output
12/21/24 12/22/24 12/23/24
06:59 06:59 06:59
Output Total 425 / 425
Balance -425 / -425
Output:
Urine, Voided 425 / 425
Other:
Number of approximated MODERATE 1
amounts of urine
Physical Exam
-
General -no acute distress
[2024-12-22 07:53] LABS: Hematocrit 44.7 % (39.0-52.0); Hemoglobin 14.3 g/dL (13.0-18.0); Mean Corp Hgb Conc. 32.0 g/dL (33.0-37.0); Mean Corpuscular Volume 93.5 fL (80.0-94.0); Nucleated Red Blood Cells % 0 % (-); Platelet Count 180 10^3/uL (130-400); Red Cell Dist. Width 13.2 % (11.5-14.5)
[2024-12-22 07:56] LABS: APTT 33.5 Sec (23.4-35.0)
[2024-12-22 08:15] LABS: Glucose - Point of Care 172 mg/dl (70-99)
[2024-12-22] MEDS: LOVENOX 150 MG SC (08:17)
[2024-12-22] MEDS: COZAAR 100 MG PO (08:17)
[2024-12-22] MEDS: ZYLOPRIM 100 MG PO (08:17)
[2024-12-22] MEDS: TOPROL XL 50 MG PO (08:17)
[2024-12-22] MEDS: FLOMAX 0.4 MG PO (08:17)
[2024-12-22] MEDS: PROTONIX 40 MG PO (08:17)
[2024-12-22 08:20] LABS: Blood Urea Nitrogen 11 mg/dl (9-20); Calcium 9.0 mg/dl (8.4-10.2); Carbon Dioxide 28 mmol/L (22-30); Chloride 106 mmol/L (98-107); Estimated Creatinine Clearance > 125 ml/min; Glucose 152 mg/dl (70-99); Potassium 4.0 mmol/L (3.5-5.1); Sodium 139 mmol/L (135-145); eGFR > 60.00
[2024-12-22] MEDS: NOVOLOG FLEXPEN-LOW RESISTANCE 1 UNITS SC ×2 (08:30→12:14)
--- NOTE | 2024-12-22 09:10 | W.PN.PUL3 ---
Today's Communication / Plan
-
No new complaints, stable on RA
Tolerating lovenox, to continue as OP
Encouraged ambulation today
OP FU recommended, will leave info in chart
Discharge planning per team
Assessment
-
64-year-old non-smoking obese male with a history of kidney stones, hypertension, diabetes, gout and a right presented with sharp severe left lateral abdominal pain and found to have significant pulmonary emboli-pulmonary consulted for pulmonary
embolism management 12/18/2024.
Pulmonary embolism-submassive and unprovoked
D-dimer 1.43, troponin negative, proBNP 86
PESI-75, class II low risk
Doppler negative
Mild leukocytosis-WBC 11.9
Thyroid nodule-1.7 cm right thyroid
Hematuria
Nephrolithiasis, largest stone 1.2 cm right renal pelvis
Chronic per imaging
History of nephrolithiasis, chronic according to patient (never saw urology)
Mild aortic stenosis, valve area 1.8 cm�
Normal biventricular function, normal PA pressure per echo 12/18/2024
Conditions present prior to admission:
Morbid obesity-BMI 42
Obstructive sleep apnea suspected.
Hypertension.
Diabetes.
Gout
Plan/recommendations
At this time, patient appears to be comfortable without any complaints
On 2L but not known to be on home O2, home O2 eval showing no need for O2 set up at home
He is now stable on RA
Continues with hematuria
Urinalysis 12/17 at time of admission with 4+ red cells. Supratherapeutic PTT noted
Patient states he has chronic kidney stones
Echocardiogram with normal biventricular function
No abdominal pain on exam
EKG unremarkable
Moving forward
Encouraging that he is without symptoms
However, hematuria poses a challenge with regards to treatment for his saddle embolus
Reviewed at length with patient pathophysiology of thromboembolic disease, potential morbidity and mortality
Doppler study negative for DVT
Abdominal CT without any acute pathology, and also no evidence of clot on venous phase per review with radiology
Transitioned to Lovenox 1 mg/kg starting 12/21
Best case scenario, will continue Lovenox therapy as outpatient (patient states he is willing to administer with teaching)
This will continue for the next 3 to 4 weeks at which time he will follow-up with urology and pulmonary
Okay to hold Lovenox for 24 hours after 3 weeks for planned cystoscopy in urology office
Ideally, patient will see pulmonary prior to this
Out of bed to chair, ambulate today
The patient undoubtedly has obstructive sleep apnea-associations with untreated sleep apnea will be reviewed tachycardia and no hypotension-currently risks of aggressive thrombolytic therapy outweigh [id number] notified of options,
reasons for conservative standard of care therapy and is in agreement
OP Sleep FU recommended, reviewed again today
Will leave thyroid ultrasound to primary team or in the outpatient setting
DVT prophylaxis-on full anticoagulation
Outpatient pulmonary/sleep disorders follow-up
Outpatient appropriate malignancy screening including colonoscopy and prostate exam
Reviewed with urology
D/c planning per team
Diagnostic data:
CT chest abdomen and pelvis 12/17/2024-extensive bilateral saddle pulmonary emboli, no overt CT evidence for right ventricular strain, no acute process in the abdomen or the pelvis, right thyroid lobe nodule 1.7 cm
Duplex 12/18/24- No evidence of deep venous thrombosis bilaterally.
ECHO 12/18/24: 1. Normal left ventricular size, wall thickness and systolic function.Left ventricular ejection fraction is normal.
2. Ejection fraction is 60-65% by Mcginnis's method of discs.
3. Right ventricular size and systolic function are within normal limits.
4. Mild aortic valve stenosis. Aortic valve area = 1.78 cm².
5. Aorta at Sinus of Valsalva is 3.7cm, Ascending aorta is mildy dilated at 3.8cm.
6. Trace tricuspid regurgitation. Estimated pulmonary artery pressure of 23 mmHg assuming a right atrial pressure of 3 mmHg.
7. There are no prior studies available for comparison.
Total time spent on this consultation/encounter __40__ minutes which includes review of history, physical exam, medications, laboratory data, personal review of imaging, extensive review of outpatient records, discussion with care team and
respiratory therapy.
Subjective Data
-
Date of Service:
Date of Service: December 22, 2024
Chief Complaint: Pulmonary Follow Up
Subjective:
No new complaints, stable on RA
Objective Data
Data Reviewed
Vital Signs / I&O / Oxygen:
Vital Signs
Temp Pulse Resp BP Pulse Ox
99.1 F 80 20 128/66 93
12/22/24 07:00 12/22/24 08:17 12/22/24 07:00 12/22/24 08:17 12/22/24 07:00
Intake and Output
12/21/24 12/22/24 12/23/24
06:59 06:59 06:59
Output Total 425 / 425
Balance -425 / -425
SaO2 93
Nasal Cannula flow liters per 2
minute
Physical Exam
General: Comfortable and Other (Large neck, morbid obesity)
HEENT: Normocephalic, Anicteric and Moist Mucous Membranes
Cardiovascular: S1-S2, Regular Rhythm, Murmur (n), Rub (n), Peripheral Edema (n) and Calf Tenderness (n)
Respiratory: Clear, Wheeze (n), Crackles (n), Rhonchi (n) and Non-Labored Respirations
GI: Soft, Non Distended (Obese) and Non Tender
Neurology: Awake, Alert, Oriented and No Motor Deficits (Moves all extremities)
Skin: Cyanosis (n), Jaundice (n) and Rash (n)
Labs/Micro/Reports
Lab Data
12/22/24 06:05
12/22/24 06:05
Laboratory Results
12/22/24
06:05
APTT 33.5
[2024-12-22] MEDS: DELTASONE 40 MG PO (10:15)
--- NOTE | 2024-12-22 10:52 | CM ---
Addendum entered by Bianka Avila RN 12/22/24 17:33:
[facility] transferred script to [facility] [phone] Spoke with Belkis Parker LM with patient.
Addendum entered by Bianka Avila RN 12/22/24 13:53:
Spoke with [facility] pharmacist Lovenox cost $450.00/sat . Spoke with patient he said he does not have med coverage. He said he will pay cost and he is gong to get coverage next sat.Pt feel comfortable giving himself Lovenox injections. Pt
decline dVN .
Friend Rachael will drive him home.
Original Note:
Weaned to room air . Home oxygen test done. Pox 93% on room air.
Pt needs Lovenox after discharge.
Pt declined VN .
PLAN Home pt declined VN need
[2024-12-22 11:00] VITALS: BP 146/84
[2024-12-22 11:56] LABS: Glucose - Point of Care 178 mg/dl (70-99)
--- NOTE | 2024-12-22 12:01 | W.PN.HOSP.TC ---
Addendum entered and electronically signed by Otoniel Alexander MD 12/22/24 12:16:
Right thyroid nodule
Advised patient to follow-up with thyroid ultrasound outpatient with PCP
Addendum entered and electronically signed by Otoniel Alexander MD 12/22/24 12:14:
Hematology follow-up outpatient
Addendum entered and electronically signed by Otoniel Alexander MD 12/22/24 12:14:
Mild gout
Continue with allopurinol, started 5 days of prednisone
Original Note:
Today's Communication/Plan
-
monitor vitals
see plan
lovenox
dc today
on room air
time of discharge 38minutes
Assessment / Plan
Assessment / Plan
64M with hypertension and DM-II p/w L abdominal pain, SOB, dizziness, found to have large / extensive PE.
Pulmonary Embolism
Acute Hypoxemic Respiratory Failure secondary to the above. Wean oxygen as tolerated. Did well with ambulation, now on room air. Does not need home O2
- CT A/P done in the ED shows large saddle embolus with smaller, scattered, bilateral emboli throughout the lungs.
- Now transition to IV Lovenox. Plan is to continue Lovenox until patient is seen by pulmonary and urology
- echo done no R heart strain
- US lower extremities negative for DVTs
- No clear trigger and patient will require further evaluation / age-appropriate cancer screenings, etc.
- Continue supplemental O2 and wean as able.
- Follow for any clinical changes.
- pulm consulted, now pt with hematuria, if this persists then may need evaluation. Pulmonary following. Transition to Lovenox. Urology following for hematuria. In 3 weeks will be eligible for 24-hour hold of anticoagulation with possibility of
cystoscopy at that time. Currently monitor hematuria on Lovenox, however if profuse bleeding then may need filter, see below
Hematuria
started while on heparin
reviewed CT report, noted to have nonobstructing R renal stone
continue heparin for now and monitor. H&H is stable.
[facility] has consulted with urology and they have seen the pt as this will impact PE mgmt. Per their recs if his right-sided pain or hematuria became unmanageable patient would require cystoscopy and potential stent placement but would have to be off
heparin for that. This was discussed with line runner who felt that at this time patient is too high risk with acute saddle PE for OR. Plan is to be on few weeks of Lovenox before cystoscopy
Benign Hypertension
- BP control. Continue metoprolol and losartan with holding parameters.
DM-II
- BG controlled. Hold metformin inpatient
- Follow glucose and cover with SSI if needed.
- A1C 8.2%
Morbid Obesity due to excess calories
- Affects all aspects of care.
- Encourage healthy diet and increased activity with goal of weight loss.
Suspected CAMILA
angel luis eval/tx
O2 prn
DVT Prophylaxis: Lovenox
Code Status: Full
General: No Apparent Distress and Obese
HEENT: Moist Mucous Membranes, Anicteric and PERRLA
Respiratory: Clear to Auscultation; Negative Wheezes, Rales or Rhonchi
Cardiac: Regular Rhythm and S1/S2; Negative Murmur, Rub or Gallop
GI: Soft, Nontender, Nondistended and Normal Bowel Sounds
Musculoskeletal: No Edema
Neuro: Awake and AO x 3
Psych: Calm
Anticipated Discharge: Today
Subjective/Interval History
-
Date of Service: December 22, 2024
denies nausea
Objective Data
-
Labs:
Laboratory Results
12/22/24
06:05
WBC 9.5
Hgb 14.3
Hct 44.7
Plt Count 180
APTT 33.5
Sodium 139
Potassium 4.0
Chloride 106
Carbon Dioxide 28
BUN 11
Creatinine 0.8
Glucose 152 H
Calcium 9.0
Vital Signs:
Vital Signs
Temp Pulse Resp BP Pulse Ox
98.6 F 80 16 146/84 93
12/22/24 11:00 12/22/24 11:00 12/22/24 11:00 12/22/24 11:00 12/22/24 11:00
I&O
12/21/24 12/22/24 12/23/24
06:59 06:59 06:59
Output Total 425 / 425
Balance -425 / -425
--- NOTE | 2024-12-22 12:13 | W.DCSUMMARY ---
Discharge Summary
Discharge Data
Date of Admission: 12/17/24
Date of Discharge: 12/22/24
-
Pending Results: No
Hospital Course
64-year-old male with past medical history of diabetes mellitus, hypertension, morbid obesity came to the hospital with acute hypoxic respiratory failure secondary to pulmonary embolism. Patient was seen by pulmonary throughout hospitalization.
Initially patient was started on IV heparin which was later transitioned to Lovenox. Ultrasound lower extremities were negative for DVT. Patient also had thyroid nodule for which she was instructed to get thyroid ultrasound and to follow-up with
PCP closely outpatient. He was also instructed to follow-up with hematology closely outpatient. While patient was in the hospital he also developed hematuria and a CT scan was done which showed a nonobstructing right renal stone. Patient was seen
by urology who recommended cystoscopy however given his recent blood clot pulmonary recommended to hold off and to treat this with Lovenox for few weeks and then patient should be able to come off Lovenox for cystoscopy. His hematuria continue to
improve while on Lovenox. Prior to discharge he was able to be weaned off oxygen. Once his symptoms continue to improve, he was then discharged home with instructions to follow-up with all his physicians outpatient.
Discharge Plan
-
Patient Disposition: Home (Routine Discharge)
Discharge Diagnosis/Procedures: Acute pulmonary embolism
Acute hypoxemic respiratory failure
Hematuria
Suspect obstructive sleep apnea
Thyroid nodule
Diet: As tolerated
Activity: As tolerated
Driving Restrictions: As prior to admission
Bathing Restrictions: None
Others Tests: Thyroid ultrasound outpatient with PCP
Activity Restrictions/Additional Instructions:
Continue with Lovenox injection until instructed by pulmonology
Referrals:
Bobby Valadez DO [Active, Hematology / Oncology]
Gilbert Wilburn Jr., MD [Active, Urology] - in two weeks
Jonnathan Martins MD [Family Provider, Family Practice] - in less than 1 week
Lele Sheth MD [Active, Pulmonary Medicine] - in two weeks
Referral Note: Eventual PFTs, follow-up for pulmonary embolism, and needs sleep study/sleep apnea workup
Prescriptions:
New
prednisone 20 mg Tablet
40 mg PO DAILY 4 Days Qty: 8 0RF
enoxaparin 150 mg/mL Syringe
150 mg SC Q12H 21 Days Qty: 42 0RF
acetaminophen 325 mg Tablet
650 mg PO Q4HPRN PRN (Reason: Mild Pain / Temp > 101) Qty: 0 0RF
tamsulosin 0.4 mg Capsule
0.4 mg PO DAILY Qty: 30 0RF
pantoprazole 40 mg Tablet,Delayed Release (Dr/Ec)
40 mg PO DAILY Qty: 30 0RF
Continued
atorvastatin 10 mg Tablet
10 mg PO DAILY
metoprolol succinate [Toprol XL] 100 mg Tablet Extended Release 24 Hr
50 mg PO DAILY
allopurinol 100 mg Tablet
100 mg PO DAILY
losartan 100 mg Tablet
100 mg PO DAILY
metformin 500 mg Tablet
500 mg PO BID AT 0800,1700
Discharge Orders:
Discharge Patient (As Directed); Ordered 12/22/24
Ordered By: Otoniel Alexander
Discharge Date and Time
Discharge Date/Time: 12/22/24 15:53
Print Language: MALAYSIAN
== END 2024-12-22 15:53 | disposition home or self-care (01) | DRG 175 ==
LOC: 4 EAST ACU 21:19
PROVIDERS: Emergency Medicine; Internal Medicine; Internal Medicine Critical Care Medicine; Nurse Practitioner; Registered Nurse; ADMITTING PHYSICIAN Hospitalist; ATTENDING PHYSICIAN Internal Medicine; CONSULT PHYSICIAN Internal Medicine Critical Care Medicine; CONSULT PHYSICIAN Specialist; EMERGENCY PHYSICIAN Emergency Medicine; FAMILY PHYSICIAN Family Medicine
DX: I26.92 Saddle embolus of pulmonary artery without acute cor pulmonale (principal); J96.01 Acute respiratory failure with hypoxia; N20.2 Calculus of kidney with calculus of ureter; Z68.41 Body mass index [BMI] 40.0-44.9, adult; G47.33 Obstructive sleep apnea (adult) (pediatric); E04.1 Nontoxic single thyroid nodule; E11.9 Type 2 diabetes mellitus without complications; E66.01 Morbid (severe) obesity due to excess calories; I10 Essential (primary) hypertension; Z86.711 Personal history of pulmonary embolism; Z87.442 Personal history of urinary calculi; D72.829 Elevated white blood cell count, unspecified; R31.0 Gross hematuria; Z79.84 Long term (current) use of oral hypoglycemic drugs; Z79.899 Other long term (current) drug therapy
CPT/HCPCS: 71275; 74177; 80048; 80053; 81003; 81015; 82248; 82962; 83036; 83690; 83880; 84132; 84439; 84443; 84484; 84550; 85025; 85027; 85379; 85384; 85730; 87086; 93005; 93306; 93970; 96361; 96365; 96366; 96375; 99285; Q9967

== ENCOUNTER → 2025-01-12 11:16 | Outpatient (REF) | payer MEDICARE, SELFPAY | LOC: HWRAD 11:16 | PROVIDERS: ATTENDING PHYSICIAN Physician Assistant | DX: E04.1 Nontoxic single thyroid nodule (principal); Z12.5 Encounter for screening for malignant neoplasm of prostate | CPT/HCPCS: 76536 ==

== ENCOUNTER → 2025-02-23 11:53 | Outpatient (REF) | payer MEDICARE, SELFPAY | LOC: DHSLP 11:53 | PROVIDERS: ATTENDING PHYSICIAN Internal Medicine Critical Care Medicine; FAMILY PHYSICIAN Physician Assistant | DX: G47.33 Obstructive sleep apnea (adult) (pediatric) (principal); R09.02 Hypoxemia | CPT/HCPCS: 95800 ==

== ENCOUNTER → 2025-03-23 13:29 | Outpatient (REF) | payer MEDICARE, SELFPAY | LOC: HWRAD 13:29 | PROVIDERS: ATTENDING PHYSICIAN Internal Medicine Critical Care Medicine; FAMILY PHYSICIAN Physician Assistant | DX: R04.2 Hemoptysis (principal) | CPT/HCPCS: 71250 ==

== ENCOUNTER 2025-04-04 17:45 | Inpatient (IN) | payer MEDICARE, SELFPAY ==
[2025-04-04] VITALS (9 sets, daily range): BP systolic 138–183; BP diastolic 84–115; BMI 42.4; BMI 42.5
[2025-04-04 13:16] LABS: Hematocrit 48.3 % (39.0-52.0); Hemoglobin 16.6 g/dL (13.0-18.0); Mean Corp Hgb Conc. 34.4 g/dL (33.0-37.0); Mean Corpuscular Volume 90.1 fL (80.0-94.0); Nucleated Red Blood Cells % 0 % (-); Platelet Count 176 10^3/uL (130-400); Red Cell Dist. Width 12.9 % (11.5-14.5)
[2025-04-04] MEDS: NSS 500 IV (13:42)
[2025-04-04] MEDS: DILAUDID 1 MG IV (13:42)
[2025-04-04 15:05] LABS: Urine Character Clear (Clear)
[2025-04-04 15:08] LABS: Blood Urea Nitrogen 15 mg/dl (9-20); Calcium 8.8 mg/dl (8.4-10.2); Carbon Dioxide 26 mmol/L (22-30); Chloride 103 mmol/L (98-107); Estimated Creatinine Clearance 117 ml/min; Glucose 202 mg/dl (70-99); Potassium 6.1 mmol/L (3.5-5.1); Sodium 134 mmol/L (135-145); eGFR > 60.00
[2025-04-04 15:09] LABS: Troponin I 0.017 ng/ml
[2025-04-04 15:13] LABS: Urine Red Blood Cell 60-70 /HPF (0-2)
--- NOTE | 2025-04-04 15:21 | ED.GENMED ---
History of Present Illness
<Nelsy Moura PA-C - Last Filed: 04/06/25 19:11>
General
Chief Complaint: Flank Pain
Time Seen by Provider: 04/04/25 12:54
History of Present Illness
History of Present Illness:
see MDM
Past History
<KEVIN Watkins Last Filed: 04/06/25 19:11>
Past History
ED Past Medical History: None
ED Past Surgical History: None
Social History
Tobacco: Non-smoker
Alcohol: None
Drug: None
Personal: Single
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
Phy Exam
<KEVIN Watkins Last Filed: 04/06/25 19:11>
Physical Exam
Physical Exam:
GENERAL: Alert, comfortable
Neck: supple
CARDIAC: Regular rate and rhythm .
LUNGS: Clear breath sounds bilaterally, no acute respiratory distress, no wheezes/rales/rhonchi
ABDOMEN: Soft, normal bowel sounds, nondistended, mild RLQ tenderness, no guarding, no rebound, neg tsai's
NEUROLOGICAL: Alert and oriented, no focal neuro deficits
SKIN: Warm and dry, skin intact.
PSYCH: Normal and appropriate interaction.
Course
<KEVIN Watkins Last Filed: 04/06/25 19:11>
Orders/Labs/Results
Orders:
Orders
04/04/25 12:17
Electrocardiogram (*1) Urgent
Reason for Study: Chest Pain
04/04/25 12:18
EKG- Treatment ONCE
04/04/25 13:00
Complete Blood Count/With Diff Urgent
04/04/25 13:30
0.9% Sodium Chloride 500 ml [Nss] 500 ml IV BOLUS
HYDROmorphone [Dilaudid] 1 mg IV NOW STA
04/04/25 13:31
CT Abd/pel Without Iv Or Oral Urgent
Comment:
Reason For Exam: RLQ pain, h/o stones;
04/04/25 14:33
Basic Metabolic Panel Urgent
Troponin I Urgent
04/04/25 14:54
Urinalysis Reflex To Culture Urgent
Date Specimen was Collected: 04/04/25
Time Specimen was Collected: 14:53
Urine Microscopic Reflex Cult Urgent
04/04/25 Dinner
2000 calorie (17 carb) Diabetic
At Your Request: Full Participation
04/04/25 15:26
Sodium Zirconium Cyclosilicate [Lokelma] 10 gram PO NOW STA
04/04/25 17:23
Admit/Transfer Patient As Directed
Co-Sign Provider:
Level of Care: Inpatient admission
Assign to:: Telemetry
Physician / Group: Dr Guy
Diagnosis: Kidney stone
Reason for Telemetry: Arrhythmia
Date to Stop Telemetry: 04/07/25
Time to Stop Telemetry: 11:00
Reason for Hospitalization: Kidney stone. Hematuria. Hyperkalemia. Recent PE. R/O UTI.
Expected length of stay greater than two midnights?: Yes
ELOS- Estimated Length of Stay in days: 2
I certify the patient meets the requirements for IP care: Yes
PRN Pain Medication Management As Directed
May give lesser potent ordered pain med per pt: Yes
preference::
Protocol:: Medication orders for pain may be administered in a
manner that supports deferring to patient preference
when the pt is:
- Requesting an ordered lesser potent pain medication.
Least to most potent pain medications are defined
as: acetaminophen < NSAID < tramadol < opioids
(morphine, oxycodone, hydromorphone).
- Requesting a lesser dose of the same medication IF
ORDERED.
- Requesting a less intrusive route of administration
if both routes are prescribed by the provider (PO <
IV).
04/04/25 17:25
Code Status As Directed
Resuscitation Status: Full Code
04/04/25 17:27
Dextrose 50%-Water [Dextrose 50% Syringe] 12.5 grams IV [id number] PRN
Glucagon [GlucaGen] 1 mg IM PRN PRN
Morphine Sulfate 2 mg IV Q4HPRN PRN
Oxycodone [Roxicodone] 5 mg PO Q4HPRN PRN
Bedside Glucose Monitoring As Directed
Frequency: AC&HS
Additional Instructions:: Change to q6h if pt on TPN, tube feeding or not eating
04/04/25 17:29
Calcium Gluconate 1,000 mg IV NOW STA
Dextrose 50%-Water [Dextrose 50% Syringe] 12.5 grams IV [id number] PRN
Dextrose 50%-Water [Dextrose 50% Syringe] 25 grams IV NOW STA
Insulin Human Regular [Novolin R] 5 units IV NOW STA
Sodium Bicarbonate 50 meq IV NOW STA
Bedside Glucose PRE IV Insulin- HyperK+ NOW
04/04/25 17:30
0.9% Sodium Chloride 1000 ml [Nss] 1,000 ml IV 100 mls/hr
04/04/25 17:31
Heparin 10,000 units IV NOW STA
Pharmacy Request to Place See Dose Instructions PO NOW STA
Discontinue all Active Warfarin orders?: Yes
Heparin Protocol- PTT Orders As Directed
PTT per Heparin protocol: -Obtain CBC and baseline PTT - if not already collected.
-Obtain PTT 6 hours from start of infusion. Then, every 6 hours until 2 consecutive
PTT's are therapeutic. Then, PTT Daily.
-With each rate change, obtain PTT every 6 hours until 2 consecutive PTT's are
therapeutic. Then, PTT Daily.
Notify MD As Directed
Notify physician if: PTT is greater than or equal to 200.
04/04/25 17:35
UROLOGY CONSULT Routine
Consulting Provider: Alvin Pereira
Was physician already notified: Yes
Comment: Kidney stone
04/04/25 17:45
Heparin 61007 Units/250 ml 25,000 units in 250 ml IV PER PROTOCOL
Weight to be used for heparin protocol in kilograms (kg):: 154
Protocol:: DVT/PE
PTT Goal Range to be used:: PTT 73 to 111 seconds
Order type:: Initial
INITIAL Infusion Dose (UNITS/KG/hr) & then follow protocol:: 18 units/kg/hr
Infusion Dose in UNITS/hr & then follow protocol (UNITS/hr):: 2,000
INFUSION RATE in mL/hr & then follow protocol (mL/hr):: 20
For DVT/PE algorithm, re-bolus for low PTT?: Yes
PTT less than or equal to 64 seconds:: Re-bolus 80 units/kg (max 10,000units). Increase by 500 units/hr
(+ 5mL/hr)
PTT 64.1 to 72.9 seconds:: Re-bolus 40 units/kg (max 5,000 units). Increase by 300 units/hr
(+ 3mL/hr)
PTT 73 to 111 seconds:: Target Range. No change in rate.
PTT 111.1 to 130.9 seconds:: Decrease rate by 300 units/hr (- 3 mL/hr)
PTT 131 to 199.9 seconds:: HOLD for 1 hr. Then decrease by 400 units/hr (- 4mL/hr)
PTT greater than or equal to 200 seconds:: HOLD for 2 hrs & Notify Provider. Then decrease by 500 units/hr
(- 5mL/hr)
Lab follow-up:: Each change, PTT q6h until 2 consecutive are therapeutic. Then
PTT daily.
04/04/25 17:55
PTT Urgent
Comment: Obtain baseline before beginning heparin infusion if not already collected
04/04/25 18:00
CefTRIAXone [Rocephin] 1,000 mg IV Q24H
Pharmacy Request to Place See Dose Instructions IV DIRECTED
04/04/25 18:59
Bedside Glucose POST IV Insulin- HyperK+ Q1HX2,Q2HX2
04/04/25 19:50
Potassium Urgent
Comment: draw 2 hours after regular insulin IV administration
04/04/25 20:53
Acetaminophen [Tylenol] 650 mg PO Q4HPRN PRN
Bisacodyl [Dulcolax] 10 mg RECTAL [id number] PRN
Docusate W/Senna [Senokot-S] 1 tablet PO BIDPRN PRN
Polyethylene Glycol Powder [Miralax] 17 grams PO DAILYPRN PRN
04/04/25 20:53
Activity As Directed
Activity Level: Out of Bed-Early Mobility
Pneumatic Compression Sleeves As Directed
Type: Knee high
Vital Signs As Directed
Frequency: Per unit guidelines
DX Deep Vein Thrombosis Video Routine
04/04/25 22:00
BMP [Basic Metabolic Panel] Routine
04/05/25 Breakfast
NPO
Allow oral meds: Yes
Allow clear liquids: No
04/05/25 06:55
Complete Blood Count/With Diff IN AM
Glycohemoglobin (HgbA1c) IN AM
04/05/25 07:30
Insulin Aspart Corrective Low [Novolog Flexpen-Low Resistance] See Protocol SC AC
04/05/25 08:00
Allopurinol [Zyloprim] 100 mg PO DAILY
Atorvastatin [Lipitor] 20 mg PO DAILY
Finasteride [Proscar] 5 mg PO DAILY
Metoprolol Xl [Toprol Xl] 50 mg PO DAILY
Tamsulosin [Flomax] 0.4 mg PO DAILY
04/07/25 11:00
DC Protocol for Telemetry ONCE
04/08/25 06:00
Complete Blood Count/No Diff Q2D
Comment: Notify MD if platelet count is <130,000 or decreases by 50% from baseline
04/10/25 06:00
Complete Blood Count/No Diff Q2D
Comment: Notify MD if platelet count is <130,000 or decreases by 50% from baseline
04/12/25 06:00
Complete Blood Count/No Diff Q2D
Comment: Notify MD if platelet count is <130,000 or decreases by 50% from baseline
04/14/25 06:00
Complete Blood Count/No Diff Q2D
Comment: Notify MD if platelet count is <130,000 or decreases by 50% from baseline
04/16/25 06:00
Complete Blood Count/No Diff Q2D
Comment: Notify MD if platelet count is <130,000 or decreases by 50% from baseline
04/18/25 06:00
Complete Blood Count/No Diff Q2D
Comment: Notify MD if platelet count is <130,000 or decreases by 50% from baseline
04/20/25 06:00
Complete Blood Count/No Diff Q2D
Comment: Notify MD if platelet count is <130,000 or decreases by 50% from baseline
Abnormal Lab Results
04/04/25 04/04/25 04/04/25
13:00 14:33 14:54
Absolute Neuts (auto) 8.5 H 10^3/uL
(1.4-6.5)
Absolute Monos (auto) 0.7 H 10^3/uL
(0.1-0.6)
Neutrophils % 80.5 H %
(42.2-75.2)
Lymphocytes % 11.3 L %
(20.5-51.1)
Sodium 134 L mmol/L
(135-145)
Potassium 6.1 H* mmol/L
(3.5-5.1)
Glucose 202 H mg/dl
(70-99)
Ur Occult Blood Reflex 4+ A
(Negative)
Urine RBC 60-70 A /HPF
(0-2)
Urine Glucose 2+ A
(Negative)
Urine Albumin (Reflex) 1+ A
(Neg - Trace)
04/04/25 17:31
04/04/25 14:33
Vital Signs
Initial and Last Documented VS:
Initial Vital Signs
Temp Pulse Resp BP Pulse Ox
36.9 C 59 18 158/91 95
04/04/25 12:25 04/04/25 12:25 04/04/25 12:25 04/04/25 12:25 04/04/25 12:25
Last Documented Vital Signs
Temp Pulse Resp BP Pulse Ox
36.6 C 62 16 152/89 96
04/06/25 18:30 04/06/25 18:30 04/06/25 18:30 04/06/25 18:30 04/06/25 18:30
<Kenneth Pascal, DO - Last Filed: 04/04/25 15:33>
Orders/Labs/Results
Orders:
Orders
04/04/25 12:17
Electrocardiogram (*1) Urgent
Reason for Study: Chest Pain
04/04/25 12:18
EKG- Treatment ONCE
04/04/25 13:00
Complete Blood Count/With Diff Urgent
04/04/25 13:30
0.9% Sodium Chloride 500 ml [Nss] 500 ml IV BOLUS
HYDROmorphone [Dilaudid] 1 mg IV NOW STA
04/04/25 13:31
CT Abd/pel Without Iv Or Oral Urgent
Comment:
Reason For Exam: RLQ pain, h/o stones;
04/04/25 14:33
Basic Metabolic Panel Urgent
Troponin I Urgent
04/04/25 14:54
Urinalysis Reflex To Culture Urgent
Date Specimen was Collected: 04/04/25
Time Specimen was Collected: 14:53
Urine Microscopic Reflex Cult Urgent
04/04/25 Dinner
2000 calorie (17 carb) Diabetic
At Your Request: Full Participation
04/04/25 15:26
Sodium Zirconium Cyclosilicate [Lokelma] 10 gram PO NOW STA
04/04/25 17:23
Admit/Transfer Patient As Directed
Co-Sign Provider:
Level of Care: Inpatient admission
Assign to:: Telemetry
Physician / Group: Dr Guy
Diagnosis: Kidney stone
Reason for Telemetry: Arrhythmia
Date to Stop Telemetry: 04/07/25
Time to Stop Telemetry: 11:00
Reason for Hospitalization: Kidney stone. Hematuria. Hyperkalemia. Recent PE. R/O UTI.
Expected length of stay greater than two midnights?: Yes
ELOS- Estimated Length of Stay in days: 2
I certify the patient meets the requirements for IP care: Yes
PRN Pain Medication Management As Directed
May give lesser potent ordered pain med per pt: Yes
preference::
Protocol:: Medication orders for pain may be administered in a
manner that supports deferring to patient preference
when the pt is:
- Requesting an ordered lesser potent pain medication.
Least to most potent pain medications are defined
as: acetaminophen < NSAID < tramadol < opioids
(morphine, oxycodone, hydromorphone).
- Requesting a lesser dose of the same medication IF
ORDERED.
- Requesting a less intrusive route of administration
if both routes are prescribed by the provider (PO <
IV).
04/04/25 17:25
Code Status As Directed
Resuscitation Status: Full Code
04/04/25 17:27
Dextrose 50%-Water [Dextrose 50% Syringe] 12.5 grams IV [id number] PRN
Glucagon [GlucaGen] 1 mg IM PRN PRN
Morphine Sulfate 2 mg IV Q4HPRN PRN
Oxycodone [Roxicodone] 5 mg PO Q4HPRN PRN
Bedside Glucose Monitoring As Directed
Frequency: AC&HS
Additional Instructions:: Change to q6h if pt on TPN, tube feeding or not eating
04/04/25 17:29
Calcium Gluconate 1,000 mg IV NOW STA
Dextrose 50%-Water [Dextrose 50% Syringe] 12.5 grams IV [id number] PRN
Dextrose 50%-Water [Dextrose 50% Syringe] 25 grams IV NOW STA
Insulin Human Regular [Novolin R] 5 units IV NOW STA
Sodium Bicarbonate 50 meq IV NOW STA
Bedside Glucose PRE IV Insulin- HyperK+ NOW
04/04/25 17:30
0.9% Sodium Chloride 1000 ml [Nss] 1,000 ml IV 100 mls/hr
04/04/25 17:31
Heparin 10,000 units IV NOW STA
Pharmacy Request to Place See Dose Instructions PO NOW STA
Discontinue all Active Warfarin orders?: Yes
Heparin Protocol- PTT Orders As Directed
PTT per Heparin protocol: -Obtain CBC and baseline PTT - if not already collected.
-Obtain PTT 6 hours from start of infusion. Then, every 6 hours until 2 consecutive
PTT's are therapeutic. Then, PTT Daily.
-With each rate change, obtain PTT every 6 hours until 2 consecutive PTT's are
therapeutic. Then, PTT Daily.
Notify MD As Directed
Notify physician if: PTT is greater than or equal to 200.
04/04/25 17:35
UROLOGY CONSULT Routine
Consulting Provider: Alvin Pereira
Was physician already notified: Yes
Comment: Kidney stone
04/04/25 17:45
Heparin 30478 Units/250 ml 25,000 units in 250 ml IV PER PROTOCOL
Weight to be used for heparin protocol in kilograms (kg):: 154
Protocol:: DVT/PE
PTT Goal Range to be used:: PTT 73 to 111 seconds
Order type:: Initial
INITIAL Infusion Dose (UNITS/KG/hr) & then follow protocol:: 18 units/kg/hr
Infusion Dose in UNITS/hr & then follow protocol (UNITS/hr):: 2,000
INFUSION RATE in mL/hr & then follow protocol (mL/hr):: 20
For DVT/PE algorithm, re-bolus for low PTT?: Yes
PTT less than or equal to 64 seconds:: Re-bolus 80 units/kg (max 10,000units). Increase by 500 units/hr
(+ 5mL/hr)
PTT 64.1 to 72.9 seconds:: Re-bolus 40 units/kg (max 5,000 units). Increase by 300 units/hr
(+ 3mL/hr)
PTT 73 to 111 seconds:: Target Range. No change in rate.
PTT 111.1 to 130.9 seconds:: Decrease rate by 300 units/hr (- 3 mL/hr)
PTT 131 to 199.9 seconds:: HOLD for 1 hr. Then decrease by 400 units/hr (- 4mL/hr)
PTT greater than or equal to 200 seconds:: HOLD for 2 hrs & Notify Provider. Then decrease by 500 units/hr
(- 5mL/hr)
Lab follow-up:: Each change, PTT q6h until 2 consecutive are therapeutic. Then
PTT daily.
04/04/25 17:55
PTT Urgent
Comment: Obtain baseline before beginning heparin infusion if not already collected
04/04/25 18:00
CefTRIAXone [Rocephin] 1,000 mg IV Q24H
Pharmacy Request to Place See Dose Instructions IV DIRECTED
04/04/25 18:59
Bedside Glucose POST IV Insulin- HyperK+ Q1HX2,Q2HX2
04/04/25 19:50
Potassium Urgent
Comment: draw 2 hours after regular insulin IV administration
04/04/25 20:53
Acetaminophen [Tylenol] 650 mg PO Q4HPRN PRN
Bisacodyl [Dulcolax] 10 mg RECTAL [id number] PRN
Docusate W/Senna [Senokot-S] 1 tablet PO BIDPRN PRN
Polyethylene Glycol Powder [Miralax] 17 grams PO DAILYPRN PRN
04/04/25 20:53
Activity As Directed
Activity Level: Out of Bed-Early Mobility
Pneumatic Compression Sleeves As Directed
Type: Knee high
Vital Signs As Directed
Frequency: Per unit guidelines
DX Deep Vein Thrombosis Video Routine
04/04/25 22:00
BMP [Basic Metabolic Panel] Routine
04/05/25 Breakfast
NPO
Allow oral meds: Yes
Allow clear liquids: No
04/05/25 06:55
Complete Blood Count/With Diff IN AM
Glycohemoglobin (HgbA1c) IN AM
04/05/25 07:30
Insulin Aspart Corrective Low [Novolog Flexpen-Low Resistance] See Protocol SC AC
04/05/25 08:00
Allopurinol [Zyloprim] 100 mg PO DAILY
Atorvastatin [Lipitor] 20 mg PO DAILY
Finasteride [Proscar] 5 mg PO DAILY
Metoprolol Xl [Toprol Xl] 50 mg PO DAILY
Tamsulosin [Flomax] 0.4 mg PO DAILY
04/07/25 11:00
DC Protocol for Telemetry ONCE
04/08/25 06:00
Complete Blood Count/No Diff Q2D
Comment: Notify if platelet count is <130,000 or decreases by 50% from baseline
04/10/25 06:00
Complete Blood Count/No Diff Q2D
Comment: Notify MD if platelet count is <130,000 or decreases by 50% from baseline
04/12/25 06:00
Complete Blood Count/No Diff Q2D
Comment: Notify MD if platelet count is <130,000 or decreases by 50% from baseline
04/14/25 06:00
Complete Blood Count/No Diff Q2D
Comment: Notify MD if platelet count is <130,000 or decreases by 50% from baseline
04/16/25 06:00
Complete Blood Count/No Diff Q2D
Comment: Notify MD if platelet count is <130,000 or decreases by 50% from baseline
04/18/25 06:00
Complete Blood Count/No Diff Q2D
Comment: Notify MD if platelet count is <130,000 or decreases by 50% from baseline
04/20/25 06:00
Complete Blood Count/No Diff Q2D
Comment: Notify MD if platelet count is <130,000 or decreases by 50% from baseline
Abnormal Lab Results
04/04/25 04/04/25 04/04/25
13:00 14:33 14:54
Absolute Neuts (auto) 8.5 H 10^3/uL
(1.4-6.5)
Absolute Monos (auto) 0.7 H 10^3/uL
(0.1-0.6)
Neutrophils % 80.5 H %
(42.2-75.2)
Lymphocytes % 11.3 L %
(20.5-51.1)
Sodium 134 L mmol/L
(135-145)
Potassium 6.1 H* mmol/L
(3.5-5.1)
Glucose 202 H mg/dl
(70-99)
Ur Occult Blood Reflex 4+ A
(Negative)
Urine RBC 60-70 A /HPF
(0-2)
Urine Glucose 2+ A
(Negative)
Urine Albumin (Reflex) 1+ A
(Neg - Trace)
04/04/25 17:31
04/04/25 14:33
Vital Signs
Initial and Last Documented VS:
Initial Vital Signs
Temp Pulse Resp BP Pulse Ox
36.9 C 59 18 158/91 95
04/04/25 12:25 04/04/25 12:25 04/04/25 12:25 04/04/25 12:25 04/04/25 12:25
Last Documented Vital Signs
Temp Pulse Resp BP Pulse Ox
36.6 C 62 16 152/89 96
04/06/25 18:30 04/06/25 18:30 04/06/25 18:30 04/06/25 18:30 04/06/25 18:30
<Nelsy Moura PA-C - Last Filed: 04/06/25 19:11>
MDM/Problems Addressed
Differential Diagnosis Includes:
see MDM
MDM/Problems Addressed:
Note:
CHIEF COMPLAINT(S)
- Flank pain suggestive of possible renal colic.
HISTORY OF PRESENT ILLNESS
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 starting 730 am this morning
The pain, which he describes as coming in waves, is mainly in the 'stomach thing' region but is now localized more to the front. Additional symptoms include sweating and hematuria. The patient suspects there might be a kidney stone, he has a large
stone might be on the right side. He reports no vomiting or diarrhea, but has experienced sweating.
he has h/o saddle PE
had surveillance imaging last week showing 'no change'
has not followed up with pulm yet
continues on eliquis
denies having significant CP, sob.
PAST MEDICAL AND SURIGICAL HISTORY
- Pulmonary embolism, left side, diagnosed in November.
CHRONIC MEDICAL CONDITIONS SIGNIFICANTLY AFFECTING CARE
- Sleep apnea.
MEDICATIONS
- Apixaban (Eliquis)
- Metoprolol
- Allopurinol
- Atorvastatin
- Additional unspecified medications taken this morning
REVIEW OF SYSTEMS
- Genitourinary: Hematuria, no dysuria mentioned.
- Respiratory: No acute respiratory distress mentioned.
- Gastrointestinal: Flank pain described as 'stomach thing,' no vomiting or diarrhea.
- Neurological: Reports dizziness as a side effect of medications.
- Constitutional: Sweating mentioned as part of the symptom profile.
PHYSICAL EXAM
- Nursing notes reviewed and vital signs reviewed.
GENERAL: Alert, uncomfortable
Neck: supple
CARDIAC: Regular rate and rhythm .
LUNGS: Clear breath sounds bilaterally, no acute respiratory distress, no wheezes/rales/rhonchi
ABDOMEN: Soft obeses, normal bowel sounds, nondistended, no tenderness, no guarding, no rebound, neg tsai's
NEUROLOGICAL: Alert and oriented, no focal neuro deficits
SKIN: Warm and dry, skin intact.
PSYCH: Normal and appropriate interaction.
PROBLEM LIST
Acute Problems:
- Flank pain, likely related to renal pathology.
- Hematuria.
Chronic Problems:
- Pulmonary embolism, left-sided, stable.
- Sleep apnea.
PLAN
- Obtain CT scan of the abdomen to investigate potential renal pathology.
- Administer intravenous fluids to flush potential renal calculi.
- Provide pain management, to be determined by reviewing patients prior responses to opioids such as morphine and hydromorphone.
DIFFERENTIAL DIAGNOSIS
The Differential Diagnosis includes, in no particular order and is not limited to:
1. Renal colic due to kidney stones
2. Urinary tract infection
3. Pyelonephritis
4. Acute pancreatitis
5. Cholecystitis
6. Abdominal aortic aneurysm
7. Interstitial nephritis
8. Neurosis-like syndrome (presentation due to ongoing embolic disease)
9. Musculoskeletal pain
10. Gastrointestinal ulceration/bleeding
CARE-UPDATE
04/04/25 - 15:57
Patient is currently experiencing right-sided lower abdominal pain consistent with previous renal colic due to known large stone in the right kidney, accompanied by intermittent pain and gross hematuria. Notably, there are no signs of infection as
evidenced by no fever or chills, stable hemoglobin, and microscopic hematuria. The CT scan confirms a 4mm distal right ureteral stone with mild hydronephrosis, in addition to a stable large stone in the right kidney.
Patient is on Eliquis for bilateral PE, reporting intermittent chest pain since diagnosis, though today he denies significant chest pain, shortness of breath, or near-syncope symptoms. Blood pressure concerns were possibly linked to pain, as
initially noted prior to administration of IVP medications, which have since alleviated the pain.
Hyperkalemia noted with a potassium level of 6.1, potentially attributed to Losartan use, without corresponding EKG changes. Admission is planned to address hyperkalemia and provide necessary pain management for the ureteral stone.
<Nelsy Morua PA-C - Last Filed: 04/06/25 19:11>
*Pulse Oximetry
SaO2: 94
Oxygen Mode of Delivery: Room air
Patient hypoxic: no (95)
*Critical Care Note
Total Time (30-74mins, 75-104mins- exclusive of procedures): Not Applicable
ED Attending Note
<Nelsy Moura PA-C - Last Filed: 04/06/25 19:11>
-
Portions of this chart may have been created with voice recognition software.� Occasional wrong word or��sound alike� substitutions may have occurred due to the inherent limitations of voice recognition software.
<Kenneth Pascal DO - Last Filed: 04/04/25 15:33>
ED Attending Note
Patient seen and examined by attending physician: Yes
I performed the substantive portion of visit, reviewed & personally made and approve the management plan that is documented in note by myself or MERRY.: Yes
I performed a history and physical exam of patient and discussed management with resident, I reviewed resident's note and agree with documented findings and plan of care.: Yes
ED Attending Note:
64-year-old male presents to the ER for evaluation of right-sided flank pain along with hematuria. Patient does have a known history of prior kidney stones. He is also on long-term anticoagulation with Eliquis for pulmonary embolism. He denies
any chest pain. Vital signs reviewed, patient is awake, alert, obese, appears no acute distress, conjunctiva pink, mucous membranes moist, no increased work of breathing, extremities without edema, GCS is 15. I discussed with patient and
present at bedside all test results including elevation of potassium. I discussed with them need for correction of this level which will require admission to the hospital overnight. I also discussed with them likely consultation with urology for
further addressing of his multiple kidney stones. Pain is controlled with medications administered prior to my assessment. They agree with plan and have no questions at the current time.
Discharge Plan
Departure
Patient Disposition: Admit
Date of Disposition: 04/04/25
Time of Disposition: 15:44
Admit to: Telemetry
Presentation/result/management discussed w/ accepting MD/DO: Hospitalist
Condition: Fair
Covid-19: Not Applicable
Discharge Problem:
Acute hyperkalemia, Calculus of distal right ureter
Interventions
Interventions:
*Risk Screen - Suicide Last Done: 04/04/25 12:25
*General Assessment Last Done: 04/04/25 12:25
*Neglect/Abuse Screening Last Done: 04/04/25 12:25
*ED COVID-19 Vaccine History Last Done: 04/04/25 19:07
*ED Influenza Vaccine History Last Done: 04/04/25 19:07
[facility] [place] Fall Risk Assessment Tool Last Done: 04/04/25 20:03
*Nursing Disposition Last Done: 04/04/25 20:45
YF-Jjgiil-Uqzzffenbc Assessment Last Done: 04/04/25 19:06
ED- Cardiac Assessment Last Done: 04/04/25 13:01
ED-Male Genitourinary Assessment Last Done: 04/04/25 13:01
Discharge Date and Time
Discharge Date/Time: 04/04/25 20:53
[2025-04-04] MEDS: LOKELMA 10 GRAM PO (16:11)
--- NOTE | 2025-04-04 17:13 | HPS.HSE ---
Family Physician
-
Family Physician: NILE Crystal
Chief Complaint
-
Right flank pain
History of Present Illness
Patient 64 years old male with significant multiple co-morbidities as past medical history some of which include morbid obesity, recent pulmonary embolism, nephrolithiasis, came in to the hospital with right flank pain. Patient has been experiencing
mild twitching pain on off for a while but today he is been having significant right flank pain fro moderate to severe associated with gross hematuria. Denies fever or chills, denies dysuria. No chest pain or shortness of breath. Here in the ED
found hyperkalemia and obstructing stone and referred to hospitalist for further evaluation.
Medical History
Past Medical History
Past Medical History: Reports Other
Additional Past Medical History:
Hypertension
DM-II
Obesity
Gout
Kidney Stones
Past Surgical History: Reports None and Other
Social History
Tobacco: Non-smoker
Alcohol: None
Drug: None
Family History
Family History: Not pertinent
Allergies / Home Medications
Allergies reflects when Allergies were last updated in [facility].
Home Medications with original date entered in [facility]
Allergy/Medication List:
Allergies
Allergy/AdvReac Type Severity Reaction Status Date / Time
No Known Allergies Allergy Verified 04/04/25 12:25
Home Medications
allopurinol 100 mg tablet 100 mg PO DAILY Gout 12/17/24
losartan 100 mg tablet 100 mg PO DAILY Blood Pressure 12/17/24
metoprolol succinate 100 mg tablet,extended release 24 hr (Toprol XL) 50 mg PO DAILY Blood Pressure 12/17/24
acetaminophen 325 mg tablet 650 mg (2 x 325 mg) PO Q4HPRN PRN Mild Pain / Temp > 101 #0 tabs 12/22/24
apixaban 5 mg tablet (Eliquis) 5 mg PO BID Blood Clot Prevention/Tx 04/04/25
atorvastatin 20 mg tablet (Lipitor) 20 mg PO DAILY High Cholesterol 04/04/25
finasteride 5 mg tablet 5 mg PO DAILY Urinary Issue 04/04/25
metformin 500 mg tablet,extended release 24 hr 500 mg PO QPM Diabetes 04/04/25
tamsulosin 0.4 mg capsule 0.4 mg PO DAILY Urinary Issue 04/04/25
Review of Systems
-
A 12 point ROS was completed and negative except as noted: Yes
Physical Exam
Vital Signs
Vital Signs
Temp Pulse Resp BP Pulse Ox
98.4 F 64 20 138/87 95
04/04/25 12:25 04/04/25 16:00 04/04/25 12:34 04/04/25 16:00 04/04/25 16:00
Physical exam:
General: Acutely ill
HEENT: Normocephalic, Atraumatic and dry mucous Membranes
Respiratory: Clear to Auscultation; Negative Wheezes, Rales or Rhonchi
Cardiac: Regular Rhythm and S1/S2
GI: Soft, right flank tender and Nondistended
Musculoskeletal: No Clubbing, No Cyanosis and No Edema
Neuro: Awake, Alert and Oriented, no neurological deficit
Psych: Calm
Physical Exam
General: Other
Laboratory Results
-
04/04/25 13:00
04/04/25 14:33
Laboratory Results
Troponin I 0.017 ng/ml 04/04/25 14:33
Data Reviewed
-
CT Scan: Image Personally Visualized and interpreted
Lab Data: Labs Reviewed by me
Impression/Plan
-
IMPRESSION:
Patient 64 M with multiple co-morbidities presented to the hospital with flank pain and hematuria and found 4 mm right kidney stone. Of note, patient has recent PE on anticoagulation. Also, found significant hyperkalemia.
PLAN:
Right kidney stone with hydronephrosis:
IVF
Pain control
Seen CT abd-pelvis
Urology consulted-discussed with urology who will see patient in A.M.
Will place him NPO after midnight until urology eval.
Hematuria:
Likely related to above
Aggressive IVF
Cont Flomax
Will cautiously start anticoagulation but if worsens might need to hold anticoagulation completely.
No clear signs of infection for now but would cover empirically with Ceftriaxone given high risk and if remains no infection can stop over the next 24 hrs.
Would benefit from stone composition analysis.
Hyperkalemia:
Lokelma ordered in the ED
Seen EKG
Will give hyperkalemia combo
Cardiac monitoring
Repeat K later this evening and in a.m.
Hold ARB
HTN:
Cont anti-hypertensives except ARB
HLD:
Cont home statins
Diabetes Mellitus type 2:
Diabetic diet
Insulin sliding scale
Hold metformin acutely
Gout:
Cont Allopurinol
BPH:
Cont Flomax and Finasteride
Morbid obesity:
Affects all aspects of care
Lifestyle changes modifications warranted
DVT prophylaxis:
Heparin drip
Code status:
Full code
Time spent 75 minutes
--- NOTE | 2025-04-04 17:43 | CM ---
Chart reviewed
Spoke with patient and his friend Rachael at ED bedside
He lives alone in [address]
Independent
no DME
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
[facility] in [place]
no hx of VN nor SNF
DCP is to go home with no needs
Friend Benson can pick him up at DC
Cm will continue to follow up for any dcp needs
[2025-04-04 18:14] LABS: APTT 28.1 Sec (23.4-35.0)
[2025-04-04 18:14] LABS: Glucose - Point of Care 183 mg/dl (70-99)
[2025-04-04] MEDS: NSS 1000 IV (18:15)
[2025-04-04] MEDS: CALCIUM GLUCONATE 1000 MG IV (18:16)
[2025-04-04] MEDS: SODIUM BICARBONATE 50 MEQ IV (18:16)
[2025-04-04] MEDS: ROCEPHIN 1000 MG IV (18:16)
[2025-04-04] MEDS: DEXTROSE 50% SYRINGE 25 GRAMS IV (18:17)
[2025-04-04] MEDS: NOVOLIN R 5 UNITS IV (18:17)
[2025-04-04] MEDS: ROXICODONE 5 MG PO (18:41)
[2025-04-04] MEDS: HEPARIN 10000 UNITS IV (18:41)
[2025-04-04] MEDS: STERILE WATER FOR INJECTION 10 ML IV (18:42)
[2025-04-04] MEDS: HEPARIN 25000 UNITS/250 ML IV (18:43)
[2025-04-04 19:50] LABS: Glucose - Point of Care 224 mg/dl (70-99)
[2025-04-04 20:22] LABS: Potassium 4.5 mmol/L (3.5-5.1)
[2025-04-04 20:29] LABS: Glucose - Point of Care 179 mg/dl (70-99)
[2025-04-04 22:03] LABS: Glucose - Point of Care 153 mg/dl (70-99)
--- NOTE | 2025-04-04 23:00 | PTCARENOTE ---
Received patient from ED at 2100. Admitted with kidney stone and hyperkalemia.
AAOx3, ambulatory. VS trends documented in flowsheets. Lungs clear, on RA. NSR on telemetry. C/o pain in R upper and lower abdomen, sharp and intermittent. PRN pain medications administered as ordered. Heparin drip infusing per order. Patient
reports hematuria at home, however urine is now clear. Continent, voiding in urinal- Straining urine, no stones noted. RFA and L hand IV lines patent. NPO at midnight pending urology eval. Continuing with plan of care.
[2025-04-04] MEDS: MORPHINE SULFATE 2 MG IV (23:35)
[2025-04-05] VITALS (7 sets, daily range): BP systolic 138–169; BP diastolic 80–93; PULSE 69–80; BMI 42.5
[2025-04-05 01:34] LABS: APTT 82.2 Sec (23.4-35.0)
[2025-04-05 01:38] LABS: Glucose - Point of Care 120 mg/dl (70-99)
[2025-04-05 02:06] LABS: Blood Urea Nitrogen 16 mg/dl (9-20); Calcium 8.4 mg/dl (8.4-10.2); Carbon Dioxide 26 mmol/L (22-30); Chloride 102 mmol/L (98-107); Estimated Creatinine Clearance 117 ml/min; Glucose 123 mg/dl (70-99); Potassium 4.4 mmol/L (3.5-5.1); Sodium 135 mmol/L (135-145); eGFR > 60.00
[2025-04-05] MEDS: ROXICODONE 5 MG PO ×2 (03:15→16:25)
[2025-04-05] MEDS: NSS 1000 IV ×2 (04:46→12:18)
[2025-04-05] MEDS: MORPHINE SULFATE 2 MG IV ×3 (04:46→22:00)
[2025-04-05 07:08] LABS: Hematocrit 41.1 % (39.0-52.0); Hemoglobin 13.8 g/dL (13.0-18.0); Mean Corp Hgb Conc. 33.6 g/dL (33.0-37.0); Mean Corpuscular Volume 93.4 fL (80.0-94.0); Nucleated Red Blood Cells % 0 % (-); Platelet Count 198 10^3/uL (130-400); Red Cell Dist. Width 13.0 % (11.5-14.5)
[2025-04-05 07:17] LABS: APTT 64.0 Sec (23.4-35.0)
--- NOTE | 2025-04-05 07:40 | CONS.URO ---
Consultation
-
Date/Time Consultation Performed: 04/05/2025 0730
Performing Provider: Randall
Reason for Consultation: Urolithiasis
Medical History
History of Present Illness
64 yo male who was diagnosed with right ureteral and large right ureteral stone during September, was seen in consultation by Dr Wilburn during November when pt was hospitalized with a PE. Subsequently outpatient cysto was performed and pre-op appt during
early April to address stone was scheduled.
Pt presented to ED yesterday with right flank pain.
He has been admitted to Hospitalists' service with hyperkalemia.
Past Medical History
Past Medical History: Other (1. Morbid obesity. 2. Hypertension. 3. Diabetes. 4. Kidney stones. 5. Gout. 6. PE.)
Allergies/Home Medications
Allergies
Allergy/AdvReac Type Severity Reaction Status Date / Time
No Known Allergies Allergy Verified 04/04/25 12:25
Home Medications
�Medication �Instructions �Recorded �Confirmed �Type
allopurinol 100 mg tablet 100 mg PO DAILY Gout 12/17/24 04/04/25 History
losartan 100 mg tablet 100 mg PO DAILY Blood Pressure 12/17/24 04/04/25 History
metoprolol succinate 100 mg 50 mg PO DAILY Blood Pressure 12/17/24 04/04/25 History
tablet,extended release 24 hr
(Toprol XL)
acetaminophen 325 mg tablet 650 mg (2 x 325 mg) PO Q4HPRN PRN 12/22/24 04/04/25 Rx
Mild Pain / Temp > 101 #0 tabs
apixaban 5 mg tablet (Eliquis) 5 mg PO BID Blood Clot 04/04/25 04/04/25 History
Prevention/Tx
atorvastatin 20 mg tablet (Lipitor) 20 mg PO DAILY High Cholesterol 04/04/25 04/04/25 History
finasteride 5 mg tablet 5 mg PO DAILY Urinary Issue 04/04/25 04/04/25 History
metformin 500 mg tablet,extended 500 mg PO QPM Diabetes 04/04/25 04/04/25 History
release 24 hr
tamsulosin 0.4 mg capsule 0.4 mg PO DAILY Urinary Issue 04/04/25 04/04/25 History
Physical Exam
Vital Signs
Vital Signs
Temp Pulse Resp BP Pulse Ox
98.0 F 70 16 163/85 94
04/05/25 03:00 04/05/25 03:00 04/05/25 03:00 04/05/25 03:00 04/05/25 03:00
Lab / Testing Results
Laboratory Results
04/05/25 06:55
Physical Exam
adult male in bed
General: No Apparent Distress, Comfortable and Other (obese)
Neuro: Awake
Psych: Calm
Assessment / Plan
-
Persistent right ureteral and renal calculi.
Hyperkalemia.
Will d/w Dr Wilburn surgical plan.
Data Reviewed
-
CT Scan: Image personally visualized and interpreted
Old Records: Reviewed
[2025-04-05 07:43] LABS: Blood Urea Nitrogen 16 mg/dl (9-20); Calcium 8.6 mg/dl (8.4-10.2); Carbon Dioxide 25 mmol/L (22-30); Chloride 104 mmol/L (98-107); Estimated Creatinine Clearance 98 ml/min; Glucose 183 mg/dl (70-99); Potassium 4.8 mmol/L (3.5-5.1); Sodium 134 mmol/L (135-145); eGFR > 60.00
[2025-04-05 08:00] LABS: ALT (SGPT) 24 U/L (0-50); AST (SGOT) 27 U/L (17-59); Albumin 3.7 g/dl (3.5-5.0); Alkaline Phosphatase 76 U/L (38-126); Total Protein 6.3 g/dl (6.3-8.2)
[2025-04-05 08:02] LABS: Glucose - Point of Care 187 mg/dl (70-99)
[2025-04-05] MEDS: PROSCAR 5 MG PO (08:21)
[2025-04-05] MEDS: TOPROL XL 50 MG PO (08:21)
[2025-04-05] MEDS: FLOMAX 0.4 MG PO (08:21)
[2025-04-05] MEDS: LIPITOR 20 MG PO (08:22)
[2025-04-05] MEDS: NOVOLOG FLEXPEN-LOW RESISTANCE 1 UNITS SC ×3 (08:23→17:58)
[2025-04-05] MEDS: HEPARIN 10000 UNITS IV (08:28)
[2025-04-05] MEDS: HEPARIN 25000 UNITS/250 ML IV ×2 (08:28→18:40)
[2025-04-05] MEDS: ZYLOPRIM 100 MG PO (08:39)
[2025-04-05 08:48] LABS: Glycohemoglobin (HgbA1c) 8.3 % (4.0-5.9)
--- NOTE | 2025-04-05 10:18 | W.PN.HOSP.TC ---
Today's Communication/Plan
-
see PN
Assessment / Plan
Assessment / Plan
64yo M with PMHx of pulmonary embolism in Nov 2024 on ELiquis, gout, HLD, HTN, DM, BPH, nephrolithiasis came with severe R flank pain found UPJ obstructing stone 4mm size with mild hydronephrosis.
Also c/o thick yellow-colored sputum for past few months without Hx of smoking
Also c/o dizziness on orthostatics for few months too.
A/P:
#Obstrcucting nephrolithiasis with hydronephrosis and hematuria
#BPH
4mm distal R uretral calculus and 1.3cm R renal stone
UA neg for infection, patient afebrile, leukocytosis mninimal most likely 2/2/ pain - stop Rocephin
Urology for mgmt
IVF
Watch for retention, cont tamsulosin, finasteride
pain mgmt
#Hyperkalemia on admisison
stop ARB
follow potassium
no signs of LUPILLO
#DM type 2 with neuropathy
DM diet, Insulin SS, Accucheks, hold metformin while inpatient
HgbA1c 8.3% - reasonable to add GLP-1 agonist as outpatient - defer to PCP
#Pulmonary embolism
found in Nov 2024
cont HEparin while planned for possible intervention
#THick yellowish spuutum for few months
consistent with bronchitis
Outpatient PFT with pulm
Doxy and Mucinex trial
#Dizziness
intermittemnt
chck orthostatic VS
#Morbid obesity
BMI 42.5
reduce calorie intake
#Gout
#Essential HTN
#HLD
Cont home meds
DVT ppx hep
Full code
I have spent at least 58min reviewing hcart, test results, communication witgh consultnats and providing direct patient care
Anticipated Discharge: 24 - 48 hours
Subjective/Interval History
-
Date of Service: April 05, 2025
Objective Data
-
Labs:
Laboratory Results
04/05/25 04/05/25 04/05/25
01:11 06:55 15:00
WBC 12.6 H
Hgb 13.8
Hct 41.1
Plt Count 198
APTT 82.2 H 64.0 H Pending
Sodium 135 134 L
Potassium 4.4 4.8
Chloride 102 104
Carbon Dioxide 26 25
BUN 16 16
Creatinine 1.0 1.2
Glucose 123 H 183 H
Calcium 8.4 8.6
Total Bilirubin 0.8
AST 27
ALT 24
Alkaline Phosphatase 76
Vital Signs:
Vital Signs
Temp Pulse Resp BP Pulse Ox
98.8 F 69 20 169/93 94
04/05/25 07:00 04/05/25 07:00 04/05/25 07:00 04/05/25 07:00 04/05/25 07:00
I&O
04/04/25 04/05/25 04/06/25
06:59 06:59 06:59
Output Total 600 / 600
Balance -600 / -600
Review of Systems
-
History Source: Patient
All other systems: Reviewed and negative
Respiratory: Reports Other (thick yellow sputum)
Neuro: Reports Dizzy
Physical Exam
-
General: Well Developed, Well Nourished and No Apparent Distress
HEENT: Normocephalic
Respiratory: Clear to Auscultation
Cardiac: Regular Rhythm
GI: Soft, Nontender and Nondistended
Genito-urinary: No Costovertebral Tender
Neuro: Awake
[2025-04-05] MEDS: VIBRAMYCIN 100 MG PO ×2 (11:06→19:33)
[2025-04-05] MEDS: MUCINEX 1200 MG PO ×2 (11:06→19:33)
[2025-04-05 11:53] LABS: Glucose - Point of Care 158 mg/dl (70-99)
[2025-04-05 16:49] LABS: Glucose - Point of Care 190 mg/dl (70-99)
--- NOTE | 2025-04-05 17:11 | CM ---
R ureteral and renal stones. IV/heparin and fluids. Discharge POC: TBD. Anticipate home with no needs.
[2025-04-05 18:54] LABS: APTT 153.6 Sec (23.4-35.0)
[2025-04-05 21:24] LABS: Glucose - Point of Care 169 mg/dl (70-99)
[2025-04-06] VITALS (14 sets, daily range): BP systolic 115–155; BP diastolic 67–90
[2025-04-06] MEDS: NSS 1000 IV ×2 (00:04→07:50)
[2025-04-06 02:25] LABS: APTT 102.9 Sec (23.4-35.0)
[2025-04-06] MEDS: MORPHINE SULFATE 2 MG IV ×2 (04:56→11:08)
[2025-04-06] MEDS: TYLENOL 650 MG PO (05:53)
[2025-04-06] MEDS: ROXICODONE 5 MG PO ×3 (05:53→23:05)
[2025-04-06 07:32] LABS: Glucose - Point of Care 203 mg/dl (70-99)
[2025-04-06] MEDS: HEPARIN 25000 UNITS/250 ML IV (07:43)
[2025-04-06] MEDS: FLOMAX 0.4 MG PO (07:50)
[2025-04-06] MEDS: LIPITOR 20 MG PO (07:50)
[2025-04-06] MEDS: MUCINEX 1200 MG PO ×2 (07:50→19:34)
[2025-04-06] MEDS: VIBRAMYCIN 100 MG PO ×2 (07:50→19:34)
[2025-04-06] MEDS: TOPROL XL 50 MG PO (07:51)
[2025-04-06] MEDS: ZYLOPRIM 100 MG PO (07:51)
[2025-04-06] MEDS: PROSCAR 5 MG PO (07:51)
--- NOTE | 2025-04-06 08:01 | PTCARENOTE ---
Verbal order from Dr Thompson ' turn off heparin now'. Heparin gtt placed on standby and discontinued from pt. Care ongoing.
[2025-04-06] MEDS: NOVOLOG FLEXPEN-LOW RESISTANCE 2 UNITS SC (08:14)
--- NOTE | 2025-04-06 09:18 | W.PN.UPDATE ---
Update Note
Progress Note Update
pt seen and examined
well known to me
presented with sig BPH and large known right renal stone- had saddle PE- developed hematuria with blood thinners
plan was to wait 6 months before intervention- but pt now presentes with symptomatic right uvj stone
have spoken with pt/med team and pulm
heparin off- to OR today- may need two stage procedure- will begin eliquis 24hrs post op if stable
risks, benefits, alternatives and disabilities of procedure reviewed
--- NOTE | 2025-04-06 11:00 | PTCARENOTE ---
Morning RN left due to sickness, took over as primary RN. Patient going off unit shortly for OR.
[2025-04-06] MEDS: ZOFRAN 4 MG IV (11:13)
[2025-04-06 11:24] LABS: Hematocrit 40.4 % (39.0-52.0); Hemoglobin 13.4 g/dL (13.0-18.0); Mean Corp Hgb Conc. 33.2 g/dL (33.0-37.0); Mean Corpuscular Volume 94.0 fL (80.0-94.0); Nucleated Red Blood Cells % 0 % (-); Platelet Count 180 10^3/uL (130-400); Red Cell Dist. Width 13.1 % (11.5-14.5)
--- NOTE | 2025-04-06 11:36 | W.PN.HOSP.TC ---
Today's Communication/Plan
-
hold heparin for cystoscopy
Assessment / Plan
Assessment / Plan
64yo M with PMHx of pulmonary embolism in Nov 2024 on ELiquis, gout, HLD, HTN, DM, BPH, nephrolithiasis came with severe R flank pain found UPJ obstructing stone 4mm size with mild hydronephrosis.
Also c/o thick yellow-colored sputum for past few months without Hx of smoking
Also c/o dizziness on orthostatics for few months too.
A/P:
#Obstrcucting nephrolithiasis with hydronephrosis and hematuria
#BPH
4mm distal R uretral calculus and 1.3cm R renal stone
UA neg for infection, patient afebrile, leukocytosis mninimal most likely 2/2/ pain - stop Rocephin
Urology for mgmt: for cystoscopy on 04/06/25
IVF
Watch for retention, cont tamsulosin, finasteride
pain mgmt
#Hyperkalemia on admission
stop ARB
follow potassium
no signs of LUPILLO
#DM type 2 with neuropathy
DM diet, Insulin SS, Accucheks, hold metformin while inpatient
HgbA1c 8.3% - reasonable to add GLP-1 agonist as outpatient - defer to PCP
#Pulmonary embolism
found in Nov 2024
cont HEparin while planned for intervention, stop 6 hours prior - restart 24h after prcedure
#Thick yellowish sputum for few months
consistent with bronchitis
Outpatient PFT with pulm
Doxy and Mucinex trial
#Dizziness
intermittent
orthostatic VS neg
#Morbid obesity
BMI 42.5
reduce calorie intake
#Gout
#Essential HTN
#HLD
Cont home meds
DVT ppx hep
Full code
I have spent at least 51min reviewing hcart, test results, communication wit consultnats and providing direct patient care
Anticipated Discharge: 24 - 48 hours
Subjective/Interval History
-
Date of Service: April 06, 2025
Objective Data
-
Labs:
Laboratory Results
04/06/25 04/06/25 04/06/25
02:08 08:30 11:10
WBC 11.1 H
Hgb 13.4
Hct 40.4
Plt Count 180
APTT 102.9 H Cancelled
Sodium Pending
Potassium Pending
Chloride Pending
Carbon Dioxide Pending
BUN Pending
Creatinine Pending
Glucose Pending
Calcium Pending
Total Bilirubin Pending
AST Pending
ALT Pending
Alkaline Phosphatase Pending
Vital Signs:
Vital Signs
Temp Pulse Resp BP Pulse Ox
98.0 F 60 16 155/86 95
04/06/25 07:10 04/06/25 07:51 04/06/25 07:10 04/06/25 07:10 04/06/25 07:10
I&O
04/05/25 04/06/25 04/07/25
06:59 06:59 06:59
Intake Total 2412 / 2412
Output Total 600 / 600 1520 / 1520
Balance -600 / -600 892 / 892
Review of Systems
-
History Source: Patient
All other systems: Reviewed and negative
Physical Exam
-
General: No Apparent Distress
HEENT: Normocephalic
Genito-urinary: Costovertebral Angle Tend
Neuro: Awake, Alert, Oriented and AO x 3
Psych: Calm
[2025-04-06 12:02] LABS: Glucose - Point of Care 176 mg/dl (70-99)
[2025-04-06] MEDS: NOVOLOG FLEXPEN-LOW RESISTANCE SC ×2 (12:24→16:25)
[2025-04-06 13:03] LABS: ALT (SGPT) 21 U/L (0-50); AST (SGOT) 20 U/L (17-59); Albumin 3.8 g/dl (3.5-5.0); Alkaline Phosphatase 76 U/L (38-126); Blood Urea Nitrogen 18 mg/dl (9-20); Calcium 8.4 mg/dl (8.4-10.2); Carbon Dioxide 25 mmol/L (22-30); Chloride 104 mmol/L (98-107); Estimated Creatinine Clearance 90 ml/min; Glucose 176 mg/dl (70-99); Potassium 4.3 mmol/L (3.5-5.1); Sodium 133 mmol/L (135-145); Total Protein 6.4 g/dl (6.3-8.2); eGFR > 60.00
--- NOTE | 2025-04-06 14:46 | W.IMMPOSTOP ---
Surgical Immed Post Op Note
-
Primary Surgeon:
angie
Assisting Surgeon:
Pre-op Diagnosis:
right ureteral ans right renal stones
Post-op Diagnosis:
same
Procedure Performed:
cysto, right ureteroscopy, laser litho and extraction of ureteral stone, laser litho of renal stone
Anesthesia Type:
gen
Specimen / Cultures:
none
Estimated Blood Loss:
5cc
Complications:
none
Operative Findings:
sig BPH
stent and kelly placed
per pulm discussion- will hold heparin and plan to institute eliquis tomorrow
[2025-04-06 15:12] LABS: Glucose - Point of Care 164 mg/dl (70-99)
--- NOTE | 2025-04-06 16:25 | PTCARENOTE ---
Patient arrived back to unit from PACU s/p cysto, right ureteroscopy, laser litho and extraction of ureteral stone, laser litho of renal stone. Has kelly catheter, draining dark bloody urine. 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
PACU.
--- NOTE | 2025-04-06 17:25 | CM ---
POD#1 R ureteral R renal stones. Cysto, right ureteroscopy, laser litho and extraction of ureteral stone, laser litho of renal stone. Discharge POC: Anticipate home with no needs.
--- NOTE | 2025-04-06 19:20 | PTCARENOTE ---
Patient had non-sustained 6-beat run of V-Tach shortly before change of shift. Patient asymptomatic. Made mini shifter house provider Felicia LAUREANO aware.
[2025-04-06 23:05] LABS: Glucose - Point of Care 230 mg/dl (70-99)
[2025-04-07 03:20] VITALS: BP 134/69
[2025-04-07 07:07] LABS: Glucose - Point of Care 161 mg/dl (70-99)
--- NOTE | 2025-04-07 07:14 | W.PN.URO.CBU ---
Today's Communication / Plan
-
kelly out
restart eliquis tonight
Assessment / Plan
-
hx of saddle PE on eliquis
right ureteral and renal stone- s/p ureteroscopy/laser litho and stent
kelly left in over night to monitor hematuria- urine expected color this morning kelly removed;PROBLEM WILL BE WITH RESTART ELIQUIS- PER PULMONARY- OKAY TO START WITHOUT HEPARIN WITH EVENING DOSE TODAY (NOT AM)- WOULD THEN OBSERVE OVERNIGHT AND IF
VOIDING IN AM WITHOUT SIG HEMATURIA CAN DISCHARGE- IF HEMATURIA BECOMES PROBLEMATIC WOULD NEED TO INVOLVE PULM REGARDING FILTER/ETC
continue proscar and flomax
from gu standpoint- would rec continuing doxy for total of 7-10 days
will follow
Diagnosis
-
Date of Service: April 07, 2025
-
Patient Diagnosis:
stone
Post Op Day:
right ureteroscopy/laser litho and stent 04/06
Subjective
-
pt feels much better
af
urine davis- irrigated- no clots
Objective
-
Vital Signs
Temp Pulse Resp BP Pulse Ox
98.4 F 57 17 134/69 94
04/07/25 03:20 04/07/25 03:20 04/07/25 03:20 04/07/25 03:20 04/07/25 03:20
Intake and Output
04/06/25 04/07/25 04/08/25
06:59 06:59 06:59
Intake Total 2412 / 2412 1791 / 1791
Output Total 1520 / 1520 1300 / 1300
Balance 892 / 892 491 / 491
Intake:
Oral fluids 1080 / 1080 716 / 716
IV fluids (Total) 1200 / 1200 1075 / 1075
Normosol 75 / 75
IV piggybacks 132 / 132
Output:
Urine, Kelly 1300 / 1300
Urine, Voided 1520 / 1520
Laboratory Results
04/06/25 11:10
Review of Systems
-
Constitutional: No Symptoms
Respiratory: No Symptoms
Cardiac: No Symptoms
Abdomen/GI: No Symptoms
Physical Exam
-
General - no acute distress
Abdomen - soft, non-tender
Genitalia - kelly irrigated- then removed
[2025-04-07 07:30] VITALS: BP 138/80
--- NOTE | 2025-04-07 07:43 | PTCARENOTE ---
Sinclair Catheter removed by Dr. Wilburn this AM.
[2025-04-07] MEDS: LIPITOR 20 MG PO (08:11)
[2025-04-07] MEDS: PROSCAR 5 MG PO (08:11)
[2025-04-07] MEDS: FLOMAX 0.4 MG PO (08:12)
[2025-04-07] MEDS: MUCINEX 1200 MG PO ×2 (08:12→20:29)
[2025-04-07] MEDS: VIBRAMYCIN 100 MG PO ×2 (08:12→20:28)
[2025-04-07] MEDS: ZYLOPRIM 100 MG PO (08:12)
[2025-04-07] MEDS: TOPROL XL 50 MG PO (08:12)
[2025-04-07] MEDS: NOVOLOG FLEXPEN-LOW RESISTANCE 1 UNITS SC ×3 (08:13→18:12)
[2025-04-07 09:06] LABS: Hematocrit 39.0 % (39.0-52.0); Hemoglobin 12.7 g/dL (13.0-18.0); Mean Corp Hgb Conc. 32.6 g/dL (33.0-37.0); Mean Corpuscular Volume 95.6 fL (80.0-94.0); Nucleated Red Blood Cells % 0 % (-); Platelet Count 191 10^3/uL (130-400); Red Cell Dist. Width 13.0 % (11.5-14.5)
--- NOTE | 2025-04-07 10:21 | CM ---
Chart reviewed and patient lives alone, plan is to home no needs when stable.
Plan: Home no needs.
[2025-04-07 11:25] VITALS: BP 117/63
--- NOTE | 2025-04-07 11:26 | W.PN.HOSP.TC ---
Today's Communication/Plan
-
Elqiuis PM dose
Monitr for hematuria
Assessment / Plan
Assessment / Plan
64yo M with PMHx of pulmonary embolism in Nov 2024 on ELiquis, gout, HLD, HTN, DM, BPH, nephrolithiasis came with severe R flank pain found UPJ obstructing stone 4mm size with mild hydronephrosis.
Also c/o thick yellow-colored sputum for past few months without Hx of smoking
Also c/o dizziness on orthostatics for few months too.
A/P:
#Obstrcucting nephrolithiasis with hydronephrosis and hematuria
#BPH
4mm distal R ureteral calculus and 1.3cm R renal stone
UA neg for infection, patient afebrile, leukocytosis minimal most likely 2/2/ pain - stop Rocephin
Urology for mgmt: s/p cysto, right ureteroscopy, laser litho and extraction of ureteral stone, laser litho of renal stone on 04/06/25
IVF
Watch for retention, cont tamsulosin, finasteride
pain mgmt
Holding anticoagulation for 24h after ptocedure as per conversation with Urology. Plan to restart PM on 04/07/25 and monitor for worsening hematuria overnight
#Hyperkalemia on admission
stop ARB
follow potassium
no signs of LUPILLO
#DM type 2 with neuropathy
DM diet, Insulin SS, Accucheks, hold metformin while inpatient
HgbA1c 8.3% - reasonable to add GLP-1 agonist as outpatient - defer to PCP
#Pulmonary embolism
found in Nov 2024
cont HEparin while planned for intervention, stop 6 hours prior - restart 24h after prcedure
#Thick yellowish sputum for few months
consistent with bronchitis
Outpatient PFT with pulm
Doxy and Mucinex trial
#Dizziness
intermittent
orthostatic VS neg
#Morbid obesity
BMI 42.5
reduce calorie intake
#Gout
#Essential HTN
#HLD
Cont home meds
DVT ppx hep
Full code
I have spent at least 51min reviewing hcart, test results, communication witgh consultnats and providing direct patient care
Anticipated Discharge: Within 24 hours
Subjective/Interval History
-
Date of Service: April 07, 2025
Objective Data
-
Labs:
Laboratory Results
04/07/25
08:24
WBC 11.8 H
Hgb 12.7 L
Hct 39.0
Plt Count 191
Vital Signs:
Vital Signs
Temp Pulse Resp BP Pulse Ox
98.1 F 66 16 138/80 97
04/07/25 07:30 04/07/25 08:12 04/07/25 07:30 04/07/25 08:12 04/07/25 07:30
I&O
04/06/25 04/07/25 04/08/25
06:59 06:59 06:59
Intake Total 2412 / 2412 1791 / 1791
Output Total 1520 / 1520 1300 / 1300
Balance 892 / 892 491 / 491
Review of Systems
-
History Source: Patient
All other systems: Reviewed and negative
Physical Exam
-
General: No Apparent Distress
HEENT: Normocephalic
Cardiac: Regular Rhythm
GI: Soft, Nontender and Nondistended
Neuro: Awake, Alert, Oriented and AO x 3
Psych: Calm
[2025-04-07 11:56] LABS: Glucose - Point of Care 176 mg/dl (70-99)
[2025-04-07 15:25] VITALS: BP 132/76
[2025-04-07 17:25] LABS: Glucose - Point of Care 176 mg/dl (70-99)
[2025-04-07 19:10] VITALS: BP 139/73
[2025-04-07] MEDS: ELIQUIS 5 MG PO (20:29)
[2025-04-07 21:58] LABS: Glucose - Point of Care 196 mg/dl (70-99)
[2025-04-07 23:15] VITALS: BP 142/78
[2025-04-08 03:10] VITALS: BP 137/82
--- NOTE | 2025-04-08 04:00 | PTCARENOTE ---
Pt with an 8 beat run of PVCs @ 0315 otherwise in NSR. Then had a 5 beat run at 0336, and another 5 beat run at 0348. TT GEORGI Paredes. Added a mag and bmp for am labs. Pt asymptomatic and asleep. Care ongoing.
--- NOTE | 2025-04-08 07:28 | W.PN.URO.CBU ---
Today's Communication / Plan
-
discharge this afternoon if stable and no trouble urinating after morning eliquis dose
Assessment / Plan
-
hx of saddle PE on eliquis
right ureteral and renal stone- s/p ureteroscopy/laser litho and stent
expected hematuria on eliquis
continue flomax and proscar
would discharge with course of doxy and tramadol for pain
plan for stent removal in 2 weeks
will hope that hematuria does not become an issue
Diagnosis
-
Date of Service: April 08, 2025
-
Patient Diagnosis:
stone
Post Op Day:
right ureteroscopy/laser litho and stent 04/06
Subjective
-
eliquis restarted last night
pt says urine davis colored- but no clots or difficulty urinating
no fevers
Objective
-
Vital Signs
Temp Pulse Resp BP Pulse Ox
98.0 F 70 18 137/82 95
04/08/25 03:10 04/08/25 03:10 04/08/25 03:10 04/08/25 03:10 04/08/25 03:10
Intake and Output
04/07/25 04/08/25 04/09/25
06:59 06:59 06:59
Intake Total 1791 / 1791 1556 / 1556
Output Total 1300 / 1300 1175 / 1175
Balance 491 / 491 381 / 381
Intake:
Oral fluids 716 / 716 1556 / 1556
IV fluids (Total) 1075 / 1075
Normosol 75 / 75
Output:
Urine, Sinclair 1300 / 1300
Urine, Voided 1175 / 1175
Review of Systems
-
Constitutional: Fatigue
Respiratory: No Symptoms
Cardiac: No Symptoms
Abdomen/GI: No Symptoms
: Frequency
Physical Exam
-
General -no acute distress
[2025-04-08 07:29] LABS: Hematocrit 39.6 % (39.0-52.0); Hemoglobin 12.7 g/dL (13.0-18.0); Mean Corp Hgb Conc. 32.1 g/dL (33.0-37.0); Mean Corpuscular Volume 95.2 fL (80.0-94.0); Nucleated Red Blood Cells % 0 % (-); Platelet Count 213 10^3/uL (130-400); Red Cell Dist. Width 13.4 % (11.5-14.5)
[2025-04-08 07:35] VITALS: BP 148/85
[2025-04-08 07:39] LABS: Glucose - Point of Care 172 mg/dl (70-99)
[2025-04-08 07:58] LABS: Blood Urea Nitrogen 23 mg/dl (9-20); Calcium 8.5 mg/dl (8.4-10.2); Carbon Dioxide 26 mmol/L (22-30); Chloride 108 mmol/L (98-107); Estimated Creatinine Clearance > 125 ml/min; Glucose 160 mg/dl (70-99); Magnesium 1.9 mg/dl (1.6-2.3); Potassium 4.1 mmol/L (3.5-5.1); Sodium 139 mmol/L (135-145); eGFR > 60.00
[2025-04-08] MEDS: NOVOLOG FLEXPEN-LOW RESISTANCE 1 UNITS SC (08:40)
[2025-04-08] MEDS: MUCINEX 1200 MG PO (08:41)
[2025-04-08] MEDS: FLOMAX 0.4 MG PO (08:42)
[2025-04-08] MEDS: VIBRAMYCIN 100 MG PO (08:42)
[2025-04-08] MEDS: ZYLOPRIM 100 MG PO (08:42)
[2025-04-08] MEDS: PROSCAR 5 MG PO (08:42)
[2025-04-08] MEDS: TOPROL XL 50 MG PO (08:42)
[2025-04-08] MEDS: ELIQUIS 5 MG PO (08:42)
[2025-04-08] MEDS: LIPITOR 20 MG PO (08:42)
--- NOTE | 2025-04-08 09:29 | W.PN.HOSP.TC ---
Today's Communication/Plan
-
dc
Assessment / Plan
Assessment / Plan
64yo M with PMHx of pulmonary embolism in Nov 2024 on ELiquis, gout, HLD, HTN, DM, BPH, nephrolithiasis came with severe R flank pain found UPJ obstructing stone 4mm size with mild hydronephrosis. s/p cysto, right ureteroscopy, laser litho and
extraction of ureteral stone, laser litho of renal stone on 04/06/25. Monitored on ELiquis overnight, urine still reddish, but no michele blood or clots. As per Urology - since patient is able to urinate - he can continue to monitor himself at home.
Advised if pain on urination, inability to urinate, worsening bleeding or clots in urine - come back to ED. Patient will call urologist office in AM. MEdcially stabel to d/c as Hgb stable.
Also c/o thick yellow-colored sputum for past few months without Hx of smoking - mild bronchitis
Also c/o intermittent dizziness on orthostatics for few months too, however orthostatic VS neg
A/P:
#Obstructing nephrolithiasis with hydronephrosis and hematuria
#BPH
4mm distal R ureteral calculus and 1.3cm R renal stone
UA neg for infection, patient afebrile, leukocytosis minimal most likely 2/2/ pain - stop Rocephin
Urology for mgmt: s/p cysto, right ureteroscopy, laser litho and extraction of ureteral stone, laser litho of renal stone on 04/06/25
IVF
Watch for retention, cont tamsulosin, finasteride
pain mgmt
Holding anticoagulation for 24h after procedure as per conversation with Urology. Plan to restart PM on 04/07/25 and monitor for worsening hematuria overnight
#Hyperkalemia on admission
stop ARB
follow potassium
no signs of LUPILLO
#DM type 2 with neuropathy
DM diet, Insulin SS, Accucheks, hold metformin while inpatient
HgbA1c 8.3% - reasonable to add GLP-1 agonist as outpatient - defer to PCP
#Pulmonary embolism
found in Nov 2024
cont HEparin while planned for intervention, stop 6 hours prior - restart 24h after prcedure
#Thick yellowish sputum for few months
consistent with bronchitis
Outpatient PFT with pulm
Doxy and Mucinex trial
#Dizziness
intermittent
orthostatic VS neg
#Morbid obesity
BMI 42.5
reduce calorie intake
#Gout
#Essential HTN
#HLD
Cont home meds
DVT ppx hep
Full code
I have spent at least 51min reviewing hcart, test results, communication wit consultnats and providing direct patient care
Anticipated Discharge: Today
Subjective/Interval History
-
Date of Service: April 08, 2025
Objective Data
-
Labs:
Laboratory Results
04/08/25
06:26
WBC 9.9
Hgb 12.7 L
Hct 39.6
Plt Count 213
Sodium 139
Potassium 4.1
Chloride 108 H
Carbon Dioxide 26
BUN 23 H
Creatinine 0.9
Glucose 160 H
Calcium 8.5
Vital Signs:
Vital Signs
Temp Pulse Resp BP Pulse Ox
97.9 F 60 20 148/85 93
04/08/25 07:35 04/08/25 07:35 04/08/25 07:35 04/08/25 07:35 04/08/25 07:35
I&O
04/07/25 04/08/25 04/09/25
06:59 06:59 06:59
Intake Total 1791 / 1791 1556 / 1556
Output Total 1300 / 1300 1175 / 1175
Balance 491 / 491 381 / 381
Review of Systems
-
History Source: Patient
All other systems: Reviewed and negative
Genitourinary: Reports Bleeding
Physical Exam
-
General: No Apparent Distress
HEENT: Normocephalic
Cardiac: Regular Rhythm
GI: Soft, Nontender and Nondistended
Skin: Warm
Neuro: Awake, Alert, Oriented and AO x 3
Psych: Calm
--- NOTE | 2025-04-08 09:36 | W.DCSUMMARY ---
Discharge Summary
Discharge Data
Date of Admission: 04/04/25
Date of Discharge: 04/08/25
-
Pending Results: No
Hospital Course
64yo M with PMHx of pulmonary embolism in Nov 2024 on ELiquis, gout, HLD, HTN, DM, BPH, nephrolithiasis came with severe R flank pain found UPJ obstructing stone 4mm size with mild hydronephrosis. s/p cysto, right ureteroscopy, laser litho and
extraction of ureteral stone, laser litho of renal stone on 04/06/25. Monitored on ELiquis overnight, urine still reddish, but no michele blood or clots. As per Urology - since patient is able to urinate - he can continue to monitor himself at home.
Advised if pain on urination, inability to urinate, worsening bleeding or clots in urine - come back to ED. Patient will call urologist office in AM. MEdcially stabel to d/c as Hgb stable.
Also c/o thick yellow-colored sputum for past few months without Hx of smoking - mild bronchitis
Also c/o intermittent dizziness on orthostatics for few months too, however orthostatic VS neg
I have spent at least 51min reviewing hcart, test results, communication witgh consultnats and providing direct patient care'
Patient was managed for:
#Obstructing nephrolithiasis with hydronephrosis and hematuria
#BPH
#Hyperkalemia on admission
#DM type 2 with neuropathy
#Pulmonary embolism
#Thick yellowish sputum for few months
#Dizziness
#Morbid obesity
#Gout
#Essential HTN
#HLD
Discharge Plan
-
Patient Disposition: Home (Routine Discharge)
Discharge Diagnosis/Procedures: nephrolithiasis
Diet: Diabetic, Carb Controlled
Activity: As tolerated
Blood Work: CBC with family doctor in 7 days
Referrals:
Von Hinojosa PA [Family Provider, Family Practice] - in less than 1 week
Referral Note: reasonable to add GLP-1 agonist as outpatient
Referral to [facility]
Michele Wilburn Jr., MD [Active, Urology] - in one day
Prescriptions:
New
doxycycline hyclate 100 mg Capsule
100 mg PO Q12 Qty: 7 0RF
guaifenesin 600 mg Tablet Extended Release 12hr
1,200 mg PO Q12 Qty: 60 0RF
Continued
metoprolol succinate [Toprol XL] 100 mg Tablet Extended Release 24 Hr
50 mg PO DAILY
allopurinol 100 mg Tablet
100 mg PO DAILY
acetaminophen 325 mg Tablet
650 mg PO Q4HPRN PRN (Reason: Mild Pain / Temp > 101) Qty: 0 0RF
atorvastatin [Lipitor] 20 mg Tablet
20 mg PO DAILY
metformin 500 mg Tablet Extended Release 24 Hr
500 mg PO QPM
finasteride 5 mg Tablet
5 mg PO DAILY
Eliquis 5 mg Tablet
5 mg PO BID
tamsulosin 0.4 mg capsule
0.4 mg PO DAILY
Discontinued
losartan 100 mg Tablet
100 mg PO DAILY
Discharge Orders:
Discharge Patient (As Directed); Ordered 04/08/25
Ordered By: Slade Thompson
Discharge Date and Time
Print Language: PORTUGUESE
--- NOTE | 2025-04-08 09:58 | CM ---
Home today no needs, family to transport.
Plan; Home no needs.
[2025-04-08 11:38] VITALS: BP 126/70
--- NOTE | 2025-04-09 10:03 | PN.CDI ---
Addendum entered and electronically signed by Slade Thompson MD 04/09/25 10:47:
Its neither acute nor chronic.
Original Note:
CDI
- -
CDI:
Physician Documentation Request
Admit Date: 04/04/25 17:45
Dear Doctor Jay,
Please review the following and provide your response in the progress notes.
Clinical Indicators:
- 04/06 ER Physician 'history of saddle PE diagnosed in November following a CT scan on eliquis'
- 'on long-term anticoagulation with Eliquis for pulmonary embolism'
- 04/08 PN 'Pulmonary embolism...cont HEparin while planned for intervention, stop 6 hours prior - restart 24h after prcedure'
- Discharged on Eliquis 5mg BID
Clarify which of the following accurately represents the acuity of the ( DX ). Possible options might include:
Acute pulmonary embolism
Acute on chronic pulmonary embolism
Chronic stable condition pulmonary embolism
Past medical history of pulmonary embolism
Other (please specify)
Use of terms such as suspected, likely, concern for, or probable (associated with a specific diagnosis that is being evaluated, monitored, or treated as if it exists) are acceptable and can be coded in the inpatient setting, when documented at the
time of discharge.
Thank you,
Aidan Carmona RN
CDI Specialist
Please use your independent medical judgment in providing your response.
== END 2025-04-08 12:21 | disposition home or self-care (01) | DRG 660 ==
LOC: 2 SOUTH 17:45
PROVIDERS: Nurse Practitioner Family; Physician Assistant; Specialist; ADMITTING PHYSICIAN Hospitalist; ATTENDING PHYSICIAN Internal Medicine; CONSULT PHYSICIAN Specialist; EMERGENCY PHYSICIAN Emergency Medicine; FAMILY PHYSICIAN Physician Assistant
PROC: 0TF38ZZ Fragmentation in Right Kidney Pelvis, Via Natural or Artificial Opening Endoscopic (ICD-10-PCS; 2025-04-06)
PROC: 0T768DZ Dilation of Right Ureter with Intraluminal Device, Via Natural or Artificial Opening Endoscopic (ICD-10-PCS; 2025-04-06)
PROC: 0TF68ZZ Fragmentation in Right Ureter, Via Natural or Artificial Opening Endoscopic (ICD-10-PCS; 2025-04-06)
DX: N13.2 Hydronephrosis with renal and ureteral calculous obstruction (principal); D68.32 Hemorrhagic disorder due to extrinsic circulating anticoagulants; Z68.41 Body mass index [BMI] 40.0-44.9, adult; E66.01 Morbid (severe) obesity due to excess calories; E87.5 Hyperkalemia; E11.40 Type 2 diabetes mellitus with diabetic neuropathy, unspecified; R42 Dizziness and giddiness; G47.30 Sleep apnea, unspecified; E66.9 Obesity, unspecified; I10 Essential (primary) hypertension; M10.9 Gout, unspecified; N40.0 Benign prostatic hyperplasia without lower urinary tract symptoms; Z79.899 Other long term (current) drug therapy; Z79.01 Long term (current) use of anticoagulants; Z86.711 Personal history of pulmonary embolism
CPT/HCPCS: 74018; 74176; 76000; 80048; 80053; 81003; 81015; 82248; 82962; 83036; 83735; 84132; 84484; 85025; 85730; 93005; 99285